=== PATIENT | male | born 1950 | race Caucasian/White ===

== ENCOUNTER 2016-12-14 17:31 | Emergency (ER) | payer MEDICARE, OTHER ==
[~2016-12-14] VITALS: Ht 170.2 cm; Wt 77.0 kg
[~2016-12-14 17:31] MED LIST: TRAM50TA4 PO
[2016-12-14] MEDS ORDERED: LEVE500T53 PO (17:47)
[2016-12-14] MEDS ORDERED: METO25XL PO (17:47)
[2016-12-14] MEDS ORDERED: DOCU240C25 PO (17:47)
[2016-12-14] MEDS ORDERED: CEPH500 PO (17:47)
[2016-12-14] MEDS ORDERED: OXYM15SP NASAL (17:47)
[2016-12-14] MEDS ORDERED: AMLO-511 PO (17:47)
[2016-12-14] MEDS ORDERED: BACITRACIN 0.9 GM PACKET OINTMENT TP ONE (20:30)
[2016-12-14 20:54] VITALS: BP 119/73
== END 2016-12-14 20:56 | disposition home or self-care (01) ==
LOC: EMS 17:32
DX: Z48.02 Encounter for removal of sutures (principal); I10 Essential (primary) hypertension
CPT/HCPCS: 99283

== ENCOUNTER 2016-12-29 21:08 | Emergency (ER) | payer MEDICARE, MEDICAID, OTHER ==
[~2016-12-29] VITALS: Ht 172.7 cm; Wt 77.3 kg
[~2016-12-29 21:08] MED LIST changes: +AMLO-511 PO; +CEPH500 PO; +DOCU240C25 PO; +LEVE500T53 PO; +METO25XL PO; +OXYM15SP NASAL; -TRAM50TA4 PO
[2016-12-29 22:22] LABS: BASOPHILS % (AUTO) 0.4 % (0.0-2.0); EOSINOPHILS % (AUTO) 4.3 % (1.0-6.0); HEMATOCRIT 31.7 % (41-53); HEMOGLOBIN 10.8 g/dL (13.5-17.5); LYMPHOCYTES # (AUTO) 0.9 K/uL (1.0-4.8); LYMPHOCYTES % (AUTO) 24.7 % (22.0-44.0); MEAN CORPUSCULAR HEMOGLOBIN 31.7 pg (26.0-34.0); MEAN CORPUSCULAR VOLUME 93 fL (80-100); MONOCYTES # (AUTO) 0.3 K/uL (0.1-1.0); MONOCYTES % (AUTO) 9.5 % (2.0-9.0); NEUTROPHILS # (AUTO) 2.2 K/uL (1.8-7.7); NEUTROPHILS % (AUTO) 61.1 % (40.0-70.0); PLATELET COUNT (AUTO) 185 K/uL (150-450); RED CELL DISTRIBUTION WIDTH 14.7 % (11.5-14.5)
[2016-12-29] MEDS ORDERED: BACITRACIN 0.9 GM PACKET OINTMENT TP ONE (22:30)
[2016-12-29 22:40] LABS: ANION GAP 7 mmol/L (8-16); CALCIUM, TOTAL 8.6 mg/dL (8.8-10.5); CARBON DIOXIDE 28 mmol/L (22-29); CHLORIDE 104 mmol/L (98-107); CREATININE 0.72 mg/dL (0.60-1.30); GLOMERULAR FILTR. RATE CALC > 60 mL/min (>60); GLUCOSE,RANDOM 108 mg/dL (70-110); POTASSIUM 4.1 mmol/L (3.5-5.1); SODIUM SERUM 139 mmol/L (136-145); UREA NITROGEN, BLOOD 18 mg/dL (7-18)
[2016-12-29 22:46] LABS: ALANINE AMINOTRANSFERASE 115 U/L (12-78); ALBUMIN 3.3 g/dL (3.4-5.0); ALKALINE PHOSPHATASE 83 U/L (46-116); ASPARTATE AMINOTRANSFERASE 124 U/L (15-37); BILIRUBIN,TOTAL 0.6 mg/dL (0.1-1.0); TOTAL PROTEIN, SERUM 7.5 g/dL (6.4-8.2)
[2016-12-29] MEDS ORDERED: HYDROCODONE/ACETAMINOPHEN 5-325 MG TABLET PO ONE (23:30)
[2016-12-29] MEDS ORDERED: KETOROLAC TROMETHAMINE 60 MG/2 ML VIAL IM ONE (23:30)
[2016-12-30 01:11] VITALS: BP 166/87
== END 2016-12-30 01:13 | disposition home or self-care (01) ==
LOC: EMS 21:09
DX: S02.2XXA Fracture of nasal bones, initial encounter for closed fracture (principal); S60.222A Contusion of left hand, initial encounter; I10 Essential (primary) hypertension; Z98.890 Other specified postprocedural states; W01.0XXA Fall on same level from slipping, tripping and stumbling without subsequent striking against object, initial encounter; Y93.89 Activity, other specified; Y92.89 Other specified places as the place of occurrence of the external cause; Y99.8 Other external cause status
CPT/HCPCS: 29125; 29280; 36415; 70450; 70486; 73130; 80053; 84484; 85025; 96372; 99285; G0480; J1885

== ENCOUNTER 2017-01-08 21:25 | Emergency (ER) | payer MEDICARE, MEDICAID, OTHER ==
[~2017-01-08] VITALS: Ht 175.3 cm; Wt 66.8 kg
[~2017-01-08 21:25] MED LIST changes: -CEPH500 PO; -DOCU240C25 PO
[2017-01-08] MEDS ORDERED: IBUPROFEN 800 MG TABLET PO ONE (22:00)
[2017-01-08 22:12] VITALS: BP 139/81
== END 2017-01-08 22:42 | disposition home or self-care (01) ==
LOC: EMS 21:26
DX: S02.2XXG Fracture of nasal bones, subsequent encounter for fracture with delayed healing (principal); I10 Essential (primary) hypertension; X58.XXXD Exposure to other specified factors, subsequent encounter
CPT/HCPCS: 99282

== ENCOUNTER 2017-02-01 01:15 | Emergency (ER) | payer MEDICARE, MEDICAID ==
[~2017-02-01] VITALS: Ht 175.3 cm; Wt 77.3 kg
[2017-02-01] MEDS ORDERED: LIDOCAINE HCL 1%/EPI 1:200,000/PF 10 ML VIAL INJ ONE (02:00)
[2017-02-01] MEDS ORDERED: LIDOCAINE HCL/PF 1% 2 ML VIAL IM ONE (02:45)
[2017-02-01] MEDS ORDERED: CefTRIAXone SODIUM 1 GM/VIAL IM ONE (02:45)
[2017-02-01 03:13] VITALS: BP 145/77
== END 2017-02-01 03:14 | disposition home or self-care (01) ==
LOC: EMS 01:17
DX: L03.113 Cellulitis of right upper limb (principal); I10 Essential (primary) hypertension; Z98.890 Other specified postprocedural states
CPT/HCPCS: 10060; 96372; 99283; J0696; J3490 ×2

== ENCOUNTER 2017-02-03 19:03 | Emergency (ER) | payer MEDICARE, MEDICAID ==
[~2017-02-03] VITALS: Ht 172.7 cm; Wt 79.5 kg
[2017-02-03] MEDS ORDERED: BUPIVACAINE HCL/PF 0.25% 10 ML VIAL INJ ONE (19:15)
[2017-02-03 19:53] VITALS: BP 162/80
== END 2017-02-03 20:12 | disposition home or self-care (01) ==
LOC: EMS 19:08
DX: S45.901A Unspecified injury of unspecified blood vessel at shoulder and upper arm level, right arm, initial encounter (principal); L76.22 Postprocedural hemorrhage of skin and subcutaneous tissue following other procedure; I10 Essential (primary) hypertension; F11.90 Opioid use, unspecified, uncomplicated; X58.XXXA Exposure to other specified factors, initial encounter; Y93.89 Activity, other specified; Y92.89 Other specified places as the place of occurrence of the external cause; Y99.8 Other external cause status
CPT/HCPCS: 99284; J3490; 99283

== ENCOUNTER 2017-02-05 18:29 | Emergency (ER) | payer MEDICARE, MEDICAID ==
[~2017-02-05] VITALS: Ht 175.3 cm; Wt 77.3 kg
[2017-02-05 18:58] VITALS: BP 104/76
== END 2017-02-05 19:38 | disposition home or self-care (01) ==
LOC: EMS 18:31
DX: Z48.00 Encounter for change or removal of nonsurgical wound dressing (principal); I10 Essential (primary) hypertension
CPT/HCPCS: 99282

== ENCOUNTER 2017-02-07 11:01 | Emergency (ER) | payer MEDICARE, MEDICAID ==
[~2017-02-07] VITALS: Ht 165.1 cm; Wt 63.0 kg
[2017-02-07 11:48] VITALS: BP 154/78
== END 2017-02-07 12:41 | disposition home or self-care (01) ==
LOC: EMS 11:03
DX: R21 Rash and other nonspecific skin eruption (principal); I10 Essential (primary) hypertension; F11.90 Opioid use, unspecified, uncomplicated
CPT/HCPCS: 99282

== ENCOUNTER 2017-02-13 11:43 | Emergency (ER) | payer MEDICARE, MEDICAID ==
[~2017-02-13] VITALS: Ht 175.3 cm; Wt 66.8 kg
[2017-02-13 14:50] VITALS: BP 147/74
[2017-02-13] MEDS ORDERED: BACITRACIN 0.9 GM PACKET OINTMENT TP ONE (15:30)
== END 2017-02-13 15:45 | disposition home or self-care (01) ==
LOC: EMS 11:46
DX: Z48.00 Encounter for change or removal of nonsurgical wound dressing (principal); L02.413 Cutaneous abscess of right upper limb; I10 Essential (primary) hypertension; F11.90 Opioid use, unspecified, uncomplicated
CPT/HCPCS: 99283

== ENCOUNTER 2017-02-13 17:17 | Emergency (ER) | payer MEDICARE, MEDICAID ==
[~2017-02-13] VITALS: Ht 175.3 cm; Wt 77.3 kg
[2017-02-13 22:42] VITALS: BP 138/81
== END 2017-02-13 23:30 | disposition home or self-care (01) ==
LOC: EMS 17:19
DX: L76.22 Postprocedural hemorrhage of skin and subcutaneous tissue following other procedure (principal); I10 Essential (primary) hypertension; F11.90 Opioid use, unspecified, uncomplicated
CPT/HCPCS: 99283

== ENCOUNTER 2017-02-16 11:30 | Emergency (ER) | payer MEDICARE, MEDICAID ==
[~2017-02-16] VITALS: Ht 175.3 cm; Wt 77.3 kg
[2017-02-16 16:16] VITALS: BP 142/81
== END 2017-02-16 16:19 | disposition home or self-care (01) ==
LOC: EMS 11:33
DX: Z48.00 Encounter for change or removal of nonsurgical wound dressing (principal); I10 Essential (primary) hypertension
CPT/HCPCS: 99282

== ENCOUNTER 2017-02-17 16:53 | Emergency (ER) | payer MEDICARE, MEDICAID ==
[~2017-02-17] VITALS: Ht 175.3 cm; Wt 77.3 kg
[2017-02-17 17:01] VITALS: BP 158/74
== END 2017-02-17 21:39 | disposition home or self-care (01) ==
LOC: EMS 16:55
DX: L03.113 Cellulitis of right upper limb (principal); I10 Essential (primary) hypertension; Z48.00 Encounter for change or removal of nonsurgical wound dressing
CPT/HCPCS: 99283

== ENCOUNTER 2017-02-21 11:03 | Emergency (ER) | payer MEDICARE, MEDICAID ==
[~2017-02-21] VITALS: Ht 175.3 cm; Wt 77.3 kg
[~2017-02-21 11:03] MED LIST changes: -LEVE500T53 PO
[2017-02-21] MEDS ORDERED: LIDOCAINE HCL 1%/EPI 1:200,000/PF 10 ML VIAL INJ ONE (12:15)
[2017-02-21 12:43] VITALS: BP 148/80
== END 2017-02-21 13:35 | disposition home or self-care (01) ==
LOC: EMS 11:06
DX: L76.22 Postprocedural hemorrhage of skin and subcutaneous tissue following other procedure (principal); I10 Essential (primary) hypertension; F11.90 Opioid use, unspecified, uncomplicated
CPT/HCPCS: 96372; 99283; J3490

== ENCOUNTER 2017-02-21 22:07 | Emergency (ER) | payer MEDICARE, MEDICAID ==
[~2017-02-21] VITALS: Ht 175.3 cm; Wt 59.5 kg
[2017-02-21] MEDS ORDERED: NALOXONE HCL 1 MG/ML 2 ML SYG IVP ONE ×2 (22:15→23:45)
[2017-02-21 22:33] LABS: BASOPHILS % (AUTO) 0.5 % (0.0-2.0); EOSINOPHILS % (AUTO) 6.7 % (1.0-6.0); HEMATOCRIT 32.2 % (41-53); HEMOGLOBIN 10.9 g/dL (13.5-17.5); LYMPHOCYTES # (AUTO) 1.6 K/uL (1.0-4.8); LYMPHOCYTES % (AUTO) 30.6 % (22.0-44.0); MEAN CORPUSCULAR HEMOGLOBIN 30.8 pg (26.0-34.0); MEAN CORPUSCULAR HGB CONC 33.8 G/dL (31.0-37.0); MEAN CORPUSCULAR VOLUME 91 fL (80-100); MONOCYTES # (AUTO) 0.4 K/uL (0.1-1.0); MONOCYTES % (AUTO) 7.4 % (2.0-9.0); NEUTROPHILS # (AUTO) 2.9 K/uL (1.8-7.7); NEUTROPHILS % (AUTO) 54.8 % (40.0-70.0); PLATELET COUNT (AUTO) 246 K/uL (150-450); RED BLOOD CELL COUNT(AUTO) 3.53 MIL/uL (4.50-5.90); RED CELL DISTRIBUTION WIDTH 13.8 % (11.5-14.5)
[2017-02-21 22:45] LABS: ANION GAP 5 mmol/L (8-16); CALCIUM, TOTAL 8.1 mg/dL (8.8-10.5); CARBON DIOXIDE 26 mmol/L (22-29); CHLORIDE 108 mmol/L (98-107); CREATININE 0.84 mg/dL (0.60-1.30); GLOMERULAR FILTR. RATE CALC > 60 mL/min (>60); GLUCOSE,RANDOM 104 mg/dL (70-110); POTASSIUM 4.1 mmol/L (3.5-5.1); SODIUM SERUM 139 mmol/L (136-145); UREA NITROGEN, BLOOD 22 mg/dL (7-18)
[2017-02-21 22:53] LABS: ALANINE AMINOTRANSFERASE 125 U/L (12-78); ALKALINE PHOSPHATASE 87 U/L (46-116); ASPARTATE AMINOTRANSFERASE 133 U/L (15-37); BILIRUBIN,TOTAL 0.4 mg/dL (0.1-1.0); TOTAL PROTEIN, SERUM 7.5 g/dL (6.4-8.2)
[2017-02-21 22:54] LABS: ACETAMINOPHEN < 2 mcg/mL (10-30)
[2017-02-22 01:37] VITALS: BP 118/72
== END 2017-02-22 02:46 | disposition home or self-care (01) ==
LOC: EMS 22:09
DX: F11.10 Opioid abuse, uncomplicated (principal); I10 Essential (primary) hypertension; Z98.890 Other specified postprocedural states
CPT/HCPCS: 36415; 80053; 85025; 93005; 96374; 99285; G0480 ×2; G0481; J2310

== ENCOUNTER 2017-07-06 13:50 | Inpatient (IN) | payer OTHER ==
[~2017-07-06] VITALS: Ht 175.3 cm; Wt 76.0 kg
[2017-07-06] MEDS ORDERED: GABA-531 PO (13:58)
[2017-07-06] MEDS ORDERED: PIPERACILLIN/TAZO 3.375 GM/D5W 50 ML IV ONE (16:45)
[2017-07-06] MEDS ORDERED: VANCOMYCIN HCL 1 GM/D5% WATER 200 ML IV ONE (16:45)
[2017-07-06] MEDS ORDERED: 0.9% SODIUM CHLORIDE 10 ML SYRINGE IVP PRN ×2 (16:45→19:00)
[2017-07-06] MEDS ORDERED: KETOROLAC TROMETHAMINE 30 MG/ML VIAL IVP ONE (17:45)
[2017-07-06 17:49] LABS: BASOPHILS % (AUTO) 0.6 % (0.0-2.0); HEMATOCRIT 32.8 % (41-53); HEMOGLOBIN 11.2 g/dL (13.5-17.5); LYMPHOCYTES # (AUTO) 1.3 K/uL (1.0-4.8); MEAN CORPUSCULAR HEMOGLOBIN 26.7 pg (26.0-34.0); MEAN CORPUSCULAR HGB CONC 34.1 G/dL (31.0-37.0); MEAN CORPUSCULAR VOLUME 78 fL (80-100); MONOCYTES # (AUTO) 0.9 K/uL (0.1-1.0); MONOCYTES % (AUTO) 11.8 % (2.0-9.0); NEUTROPHILS # (AUTO) 5.2 K/uL (1.8-7.7); NEUTROPHILS % (AUTO) 69.6 % (40.0-70.0); PLATELET COUNT (AUTO) 182 K/uL (150-450); RED BLOOD CELL COUNT(AUTO) 4.19 MIL/uL (4.50-5.90); RED CELL DISTRIBUTION WIDTH 17.8 % (11.5-14.5)
[2017-07-06 18:03] LABS: ANION GAP 11 mmol/L (8-16); CALCIUM, TOTAL 8.3 mg/dL (8.8-10.5); CARBON DIOXIDE 22 mmol/L (22-29); CHLORIDE 99 mmol/L (98-107); CREATININE 0.87 mg/dL (0.60-1.30); GLOMERULAR FILTR. RATE CALC > 60 mL/min (>60); GLUCOSE,RANDOM 93 mg/dL (70-110); POTASSIUM 3.8 mmol/L (3.5-5.1); SODIUM SERUM 132 mmol/L (136-145); UREA NITROGEN, BLOOD 17 mg/dL (7-18)
[2017-07-06 18:08] LABS: ALANINE AMINOTRANSFERASE 98 U/L (12-78); ALBUMIN 2.7 g/dL (3.4-5.0); ALKALINE PHOSPHATASE 102 U/L (46-116); ASPARTATE AMINOTRANSFERASE 89 U/L (15-37); BILIRUBIN,TOTAL 1.3 mg/dL (0.1-1.0); TOTAL PROTEIN, SERUM 7.1 g/dL (6.4-8.2)
[2017-07-06 18:11] LABS: LACTIC ACID 1.1 mmol/L (0.4-2.0)
[2017-07-06] MEDS ORDERED: ONDANSETRON HCL 4 MG/2 ML VIAL IVP PRN ×2 (19:00→21:30)
[2017-07-06] MEDS ORDERED: ACETAMINOPHEN 325 MG TABLET PO PRN ×2 (19:00→21:30)
[2017-07-06] MEDS ORDERED: KETOROLAC TROMETHAMINE 60 MG/2 ML VIAL IM ONE (19:45)
[2017-07-06] MEDS ORDERED: HYDROCODONE/ACETAMINOPHEN 10-325 MG TABLET PO ONE (19:45)
[2017-07-06] MEDS ORDERED: SULFAMETHOX/TRIMETH DS 800-160 MG/TABLET PO ONE (19:45)
[2017-07-06] MEDS ORDERED: CefTRIAXone SODIUM 1 GM/VIAL IM ONE (19:45)
[2017-07-06] MEDS ORDERED: LIDOCAINE HCL/PF 1% 2 ML VIAL IM ONE (19:45)
[2017-07-06 20:27] VITALS: BP 145/63
[2017-07-06] MEDS ORDERED: MAGNESIUM HYDROXIDE SUSPENSION 30 ML UDCUP PO PRN (21:30)
[2017-07-06] MEDS ORDERED: OxyCODONE HCL/ACETAMINOPHEN 5-325 MG TABLET PO PRN (21:30)
[2017-07-06] MEDS ORDERED: MAGNESIUM SULFATE 2 GM in DEXTROSE 5%-WATER 50 ML IV PRN (21:45)
[2017-07-06] MEDS ORDERED: MAGNESIUM OXIDE 400 MG TABLET PO PRN (21:45)
[2017-07-06] MEDS ORDERED: POTASSIUM CHL 10 MEQ/WATER 50 ML IV PRN (21:45)
[2017-07-06] MEDS ORDERED: DEXTROSE 5%-0.45% SODIUM CHL 1,000 ML IV ONE (21:45)
[2017-07-06] MEDS ORDERED: MAGNESIUM SULFATE 4 GM/WATER 100 ML IV PRN (21:45)
[2017-07-06] MEDS ORDERED: POTASSIUM CHLORIDE 20 MEQ ER TABLET PO PRN (21:45)
[2017-07-06 22:04] LABS: ALBUMIN 2.3 g/dL (3.4-5.0); MAGNESIUM 1.2 mg/dL (1.80-2.40)
[2017-07-06 23:40] VITALS: BP 99/51
[2017-07-07] MEDS ORDERED: VANCOMYCIN HCL 1.5 GM in DEXTROSE 5%-WATER 250 ML IV ONE ×2 (00:30→06:00)
[2017-07-07 03:55] VITALS: BP 116/58
[2017-07-07] MEDS: MORPHINE SULFATE 4 MG/ML SYRINGE IVP PRN ×5 (05:20→22:09)
[2017-07-07 06:41] LABS: ALBUMIN 2.1 g/dL (3.4-5.0); CALCIUM, TOTAL 7.8 mg/dL (8.8-10.5); CREATININE 1.2 mg/dL (0.60-1.30); MAGNESIUM 2.3 mg/dL (1.80-2.40); POTASSIUM 3.4 mmol/L (3.5-5.1); TOTAL PROTEIN, SERUM 5.8 g/dL (6.4-8.2)
[2017-07-07 07:35] LABS: BASOPHILS % (AUTO) 0.3 % (0.0-2.0); EOSINOPHILS % (AUTO) 1.5 % (1.0-6.0); HEMOGLOBIN 10.4 g/dL (13.5-17.5); LYMPHOCYTES # (AUTO) 0.3 K/uL (1.0-4.8); LYMPHOCYTES % (AUTO) 3.5 % (22.0-44.0); MEAN CORPUSCULAR HEMOGLOBIN 26.7 pg (26.0-34.0); MEAN CORPUSCULAR HGB CONC 34.5 G/dL (31.0-37.0); MEAN CORPUSCULAR VOLUME 77 fL (80-100); MONOCYTES # (AUTO) 0.3 K/uL (0.1-1.0); MONOCYTES % (AUTO) 3.7 % (2.0-9.0); NEUTROPHILS # (AUTO) 7.2 K/uL (1.8-7.7); PLATELET COUNT (AUTO) 166 K/uL (150-450); RED BLOOD CELL COUNT(AUTO) 3.88 MIL/uL (4.50-5.90); RED CELL DISTRIBUTION WIDTH 17.2 % (11.5-14.5)
[2017-07-07] MEDS ORDERED: VANCOMYCIN HCL 1.25 GM in DEXTROSE 5%-WATER 250 ML IV SCH (08:00)
[2017-07-07 08:05] VITALS: BP 122/65
[2017-07-07] MEDS ORDERED: RINGERS SOLUTION,LACTATED 1,000 ML IV ONE (08:29)
[2017-07-07] MEDS: DOCUSATE SODIUM 100 MG CAPSULE PO SCH ×3 (08:37→20:04)
[2017-07-07] MEDS ORDERED: POVIDONE-IODINE 10% 15 ML SOLUTION UD ONE (09:26)
[2017-07-07] MEDS ORDERED: FentaNYL CITRATE-PF 100 MCG/2 ML VIAL IVP PRN (09:30)
[2017-07-07] MEDS ORDERED: MEPERIDINE-PF 25 MG/ML SYRINGE IVP PRN (09:30)
[2017-07-07] MEDS ORDERED: ACETAMINOPHEN 1000 MG/ISO-OSM 100 ML IV ONE ×2 (09:45→09:50)
[2017-07-07] MEDS: HYDROmorphone 2 MG/ML SYRINGE IVP PRN ×2 (09:53→10:03)
[2017-07-07] MEDS ORDERED: HYDROmorphone 2 MG/ML SYRINGE ONE (09:53)
[2017-07-07] MEDS ORDERED: HYDROmorphone 2 MG/ML SYRINGE IVP PRN (10:00)
[2017-07-07] MEDS: PANTOPRAZOLE SODIUM 40 MG DR TABLET PO SCH (10:16)
[2017-07-07 10:30] VITALS: BP 121/63
[2017-07-07] MEDS ORDERED: DEXAMETHASONE SOD PHOS 4 MG/ML VIAL IVP ONE (12:00)
[2017-07-07] MEDS ORDERED: ONDANSETRON HCL 4 MG/2 ML VIAL IVP ONE (12:00)
[2017-07-07] MEDS ORDERED: PROPOFOL 1% 20 ML VIAL IVP ONE (12:00)
[2017-07-07] MEDS ORDERED: MIDAZOLAM HCL 2 MG/2 ML VIAL IVP ONE (12:00)
[2017-07-07] MEDS ORDERED: ROCURONIUM BROMIDE 10 MG/ML 5 ML VIAL IVP ONE (12:00)
[2017-07-07] MEDS ORDERED: METOCLOPRAMIDE HCL 5 MG/ML 2 ML VIAL IVP ONE (12:00)
[2017-07-07] MEDS ORDERED: GLYCOPYRROLATE 0.2 MG/ML VIAL IM ONE (12:00)
[2017-07-07] MEDS ORDERED: LIDOCAINE HCL/PF 2% 5 ML VIAL INJ ONE (12:00)
[2017-07-07] MEDS ORDERED: FentaNYL CITRATE-PF 100 MCG/2 ML VIAL IVP ONE (12:00)
[2017-07-07 15:45] VITALS: BP 112/60
[2017-07-07 20:00] VITALS: BP 122/56
[2017-07-07] MEDS ORDERED: OXYGEN THERAPY IH SCH (20:00)
[2017-07-07] MEDS: VANCOMYCIN HCL 1.25 GM in DEXTROSE 5%-WATER 250 ML IV SCH (20:03)
[2017-07-07 23:43] VITALS: BP 131/67
[2017-07-08] MEDS: MORPHINE SULFATE 4 MG/ML SYRINGE IVP PRN ×2 (03:47→08:01)
[2017-07-08 04:00] VITALS: BP 147/69
[2017-07-08] MEDS ORDERED: SODIUM CL IRRIG SOLN BOTTLE 250 ML IRRIG ONE (04:51)
[2017-07-08 07:15] VITALS: BP 161/68
[2017-07-08 07:16] LABS: ANION GAP 9 mmol/L (8-16); CALCIUM, TOTAL 8.4 mg/dL (8.8-10.5); CARBON DIOXIDE 22 mmol/L (22-29); CHLORIDE 103 mmol/L (98-107); CREATININE 0.99 mg/dL (0.60-1.30); GLOMERULAR FILTR. RATE CALC > 60 mL/min (>60); GLUCOSE,RANDOM 139 mg/dL (70-110); POTASSIUM 4.1 mmol/L (3.5-5.1); SODIUM SERUM 134 mmol/L (136-145); UREA NITROGEN, BLOOD 21 mg/dL (7-18)
[2017-07-08] MEDS: PANTOPRAZOLE SODIUM 40 MG DR TABLET PO SCH (08:00)
[2017-07-08] MEDS: VANCOMYCIN HCL 1.25 GM in DEXTROSE 5%-WATER 250 ML IV SCH ×2 (08:00→20:00)
[2017-07-08] MEDS: DOCUSATE SODIUM 100 MG CAPSULE PO SCH ×2 (08:00→20:12)
[2017-07-08 11:11] LABS: HIV 1-2 SCREEN 4TH GEN W/RFLX Non Reactive (Non Reactive)
[2017-07-08] MEDS ORDERED: HYDROCODONE/ACETAMINOPHEN 10-325 MG TABLET PO ONE (11:15)
[2017-07-08 11:16] VITALS: BP 158/80
[2017-07-08] MEDS ORDERED: OxyCODONE HCL/ACETAMINOPHEN 10-325 MG TABLET PO PRN (13:15)
[2017-07-08 15:00] VITALS: BP 155/76
[2017-07-08 19:59] VITALS: BP 169/80
[2017-07-08] MEDS: OxyCODONE HCL 10 MG ER TABLET PO SCH (20:12)
[2017-07-09 05:47] VITALS: BP 138/57
[2017-07-09 07:50] LABS: ANION GAP 6 mmol/L (8-16); CALCIUM, TOTAL 8.2 mg/dL (8.8-10.5); CARBON DIOXIDE 24 mmol/L (22-29); CHLORIDE 103 mmol/L (98-107); CREATININE 0.98 mg/dL (0.60-1.30); GLOMERULAR FILTR. RATE CALC > 60 mL/min (>60); GLUCOSE,RANDOM 84 mg/dL (70-110); POTASSIUM 4.2 mmol/L (3.5-5.1); SODIUM SERUM 133 mmol/L (136-145); UREA NITROGEN, BLOOD 22 mg/dL (7-18)
[2017-07-09] MEDS: DOCUSATE SODIUM 100 MG CAPSULE PO SCH ×2 (09:00→09:07)
[2017-07-09] MEDS: OxyCODONE HCL 10 MG ER TABLET PO SCH (09:07)
[2017-07-09] MEDS: PANTOPRAZOLE SODIUM 40 MG DR TABLET PO SCH (09:07)
[2017-07-09] MEDS: VANCOMYCIN HCL 1.25 GM in DEXTROSE 5%-WATER 250 ML IV SCH (10:24)
[2017-07-09] MEDS ORDERED: AmLODIPine BESYLATE 5 MG TABLET PO SCH (10:30)
[2017-07-09 12:17] VITALS: BP 147/69
== END 2017-07-09 16:30 | disposition still patient (30) | DRG 580 ==
LOC: EMS 13:50 → 6N 19:06
PROVIDERS: ADMIT Internal Medicine; ATTEND Internal Medicine
PROC: 0J9L0ZZ Drainage of Right Upper Leg Subcutaneous Tissue and Fascia, Open Approach (ICD-10-PCS; principal; 2017-07-07 09:00)
DX: L02.415 Cutaneous abscess of right lower limb (principal); L03.317 Cellulitis of buttock; F11.90 Opioid use, unspecified, uncomplicated; I10 Essential (primary) hypertension; Z72.89 Other problems related to lifestyle; Z79.899 Other long term (current) drug therapy; Z82.5 Family history of asthma and other chronic lower respiratory diseases
CPT/HCPCS: 83605; 83735; 84132; 86803; 87040; 87070; 87081; 87101; 87205; 87340; 87389; 99285; J0131; J0696; J1100; J1170; J1885; J2250; J2270; J2405; J2543; J2704; J2765; J3010; J3370; J3475; J3490; J7060; J7120

== ENCOUNTER 2017-08-10 13:03 | Emergency (ER) | payer OTHER ==
[~2017-08-10] VITALS: Ht 175.3 cm; Wt 86.0 kg
[~2017-08-10 13:03] MED LIST changes: +GABA-531 PO
[2017-08-10 13:24] LABS: GLUCOSE,POINT OF CARE 105 MG/DL (70-110)
[2017-08-10] MEDS ORDERED: SODIUM CHLORIDE 0.9% 1,000 ML IV ONE (14:45)
[2017-08-10 15:01] LABS: BASOPHILS % (AUTO) 0.7 % (0.0-2.0); EOSINOPHILS % (AUTO) 7.4 % (1.0-6.0); HEMATOCRIT 30.5 % (41-53); HEMOGLOBIN 10.4 g/dL (13.5-17.5); LYMPHOCYTES % (AUTO) 33.3 % (22.0-44.0); MEAN CORPUSCULAR HEMOGLOBIN 26.9 pg (26.0-34.0); MEAN CORPUSCULAR VOLUME 79 fL (80-100); MONOCYTES # (AUTO) 0.3 K/uL (0.1-1.0); MONOCYTES % (AUTO) 9.3 % (2.0-9.0); NEUTROPHILS # (AUTO) 1.4 K/uL (1.8-7.7); NEUTROPHILS % (AUTO) 49.3 % (40.0-70.0); PLATELET COUNT (AUTO) 159 K/uL (150-450); RED BLOOD CELL COUNT(AUTO) 3.86 MIL/uL (4.50-5.90); RED CELL DISTRIBUTION WIDTH 18.5 % (11.5-14.5)
[2017-08-10 15:21] LABS: INR 1.1 (0.9-1.1); PROTHROMBIN TIME 11.5 SEC (9.4-11.6)
[2017-08-10 15:31] LABS: B-TYPE NATRIURETIC PEPTIDE 197 pg/mL (0-100)
[2017-08-10 15:32] LABS: ANION GAP 7 mmol/L (8-16); CALCIUM, TOTAL 7.7 mg/dL (8.8-10.5); CARBON DIOXIDE 25 mmol/L (22-29); CHLORIDE 107 mmol/L (98-107); CREATININE 0.85 mg/dL (0.60-1.30); GLOMERULAR FILTR. RATE CALC > 60 mL/min (>60); GLUCOSE,RANDOM 122 mg/dL (70-110); POTASSIUM 3.6 mmol/L (3.5-5.1); SODIUM SERUM 139 mmol/L (136-145); UREA NITROGEN, BLOOD 14 mg/dL (7-18)
[2017-08-10 15:57] LABS: ALANINE AMINOTRANSFERASE 98 U/L (12-78); ALBUMIN 2.8 g/dL (3.4-5.0); ALKALINE PHOSPHATASE 86 U/L (46-116); ASPARTATE AMINOTRANSFERASE 129 U/L (15-37); BILIRUBIN,TOTAL 0.5 mg/dL (0.1-1.0); CKMB RELATIVE INDEX 3.4 % (0.0-4.0); CREATINE KINASE MB 10.4 ng/mL (0-5); CREATINE KINASE, TOTAL 306 U/L (39-308); TOTAL PROTEIN, SERUM 6.7 g/dL (6.4-8.2)
[2017-08-10 16:38] LABS: APPEARANCE,URINE CLEAR (CLEAR); GLUCOSE, URINE (UA) NEGATIVE (NEGATIVE); KETONES,URINE NEGATIVE (NEGATIVE); LEUKOCYTE ESTERASE ,URINE NEGATIVE (NEGATIVE); NITRATE,URINE NEGATIVE (NEGATIVE); OCCULT BLOOD,URINE NEGATIVE (NEGATIVE); PROTEIN,URINE TRACE (NEGATIVE)
[2017-08-10 16:40] LABS: BILIRUBIN,URINE PRELIM. POSITIVE (NEGATIVE)
[2017-08-10 16:44] LABS: AMPHET/METH SCREEN,URINE POSITIVE (NEGATIVE); BARBITURATE SCREEN, URINE NEGATIVE (NEGATIVE); BENZODIAZEPINES SCREEN,URINE POSITIVE (NEGATIVE); CANNABINOID SCREEN,URINE NEGATIVE (NEGATIVE); COCAINE SCREEN,URINE NEGATIVE (NEGATIVE); METHADONE SCREEN, URINE NEGATIVE (NEGATIVE); OPIATE SCREEN,URINE POSITIVE (NEGATIVE); PHENCYCLIDINE SCREEN,URINE NEGATIVE (NEGATIVE)
[2017-08-10 17:02] LABS: RBC,URINE 0-2 /HPF (0-2); WBC,URINE 0-2 /HPF (0-5)
[2017-08-10 17:03] LABS: BACTERIA,URINE None Seen /HPF (None Seen); SQUAMOUS EPITHELIAL CELL,UR None Seen /LPF (None Seen)
[2017-08-10 19:53] VITALS: BP 145/83
== END 2017-08-10 20:16 | disposition home or self-care (01) ==
LOC: EMS 13:05
DX: F11.20 Opioid dependence, uncomplicated (principal); I10 Essential (primary) hypertension; R79.1 Abnormal coagulation profile; Z79.899 Other long term (current) drug therapy
CPT/HCPCS: 93005; 99285

== ENCOUNTER 2017-10-20 20:13 | Emergency (ER) | payer OTHER ==
[~2017-10-20] VITALS: Ht 175.3 cm; Wt 75.9 kg
[~2017-10-20 20:13] MED LIST changes: -METO25XL PO; -OXYM15SP NASAL
[2017-10-20] MEDS ORDERED: SODIUM PHOS/SODIUM BIPHOS 133 ML ENEMA PR ONE (21:15)
[2017-10-20] MEDS ORDERED: MAGNESIUM CITRATE 300 ML ORAL SOLUTION PO ONE (21:15)
[2017-10-20 21:40] LABS: BASOPHILS % (AUTO) 0.6 % (0.0-2.0); EOSINOPHILS % (AUTO) 3.5 % (1.0-6.0); HEMOGLOBIN 10.8 g/dL (13.5-17.5); LYMPHOCYTES # (AUTO) 0.8 K/uL (1.0-4.8); LYMPHOCYTES % (AUTO) 14.7 % (22.0-44.0); MEAN CORPUSCULAR HEMOGLOBIN 27.7 pg (26.0-34.0); MEAN CORPUSCULAR HGB CONC 33.7 G/dL (31.0-37.0); MEAN CORPUSCULAR VOLUME 82 fL (80-100); MONOCYTES # (AUTO) 0.4 K/uL (0.1-1.0); MONOCYTES % (AUTO) 7.7 % (2.0-9.0); NEUTROPHILS # (AUTO) 4.2 K/uL (1.8-7.7); NEUTROPHILS % (AUTO) 73.5 % (40.0-70.0); PLATELET COUNT (AUTO) 169 K/uL (150-450); RED BLOOD CELL COUNT(AUTO) 3.89 MIL/uL (4.50-5.90); RED CELL DISTRIBUTION WIDTH 16.4 % (11.5-14.5)
[2017-10-20 21:40] LABS: APPEARANCE,URINE CLEAR (CLEAR); BILIRUBIN,URINE NEGATIVE (NEGATIVE); GLUCOSE, URINE (UA) NEGATIVE (NEGATIVE); KETONES,URINE NEGATIVE (NEGATIVE); LEUKOCYTE ESTERASE ,URINE NEGATIVE (NEGATIVE); NITRATE,URINE NEGATIVE (NEGATIVE); OCCULT BLOOD,URINE NEGATIVE (NEGATIVE); PROTEIN,URINE NEGATIVE (NEGATIVE)
[2017-10-20 21:51] LABS: ANION GAP 12 mmol/L (8-16); CALCIUM, TOTAL 8.6 mg/dL (8.8-10.5); CARBON DIOXIDE 23 mmol/L (22-29); CHLORIDE 105 mmol/L (98-107); CREATININE 0.92 mg/dL (0.60-1.30); GLOMERULAR FILTR. RATE CALC > 60 mL/min (>60); GLUCOSE,RANDOM 99 mg/dL (70-110); POTASSIUM 3.7 mmol/L (3.5-5.1); SODIUM SERUM 140 mmol/L (136-145); UREA NITROGEN, BLOOD 16 mg/dL (7-18)
[2017-10-20 21:57] LABS: ALANINE AMINOTRANSFERASE 89 U/L (12-78); ALBUMIN 3.1 g/dL (3.4-5.0); ALKALINE PHOSPHATASE 93 U/L (46-116); ASPARTATE AMINOTRANSFERASE 111 U/L (15-37); BILIRUBIN,TOTAL 0.7 mg/dL (0.1-1.0)
[2017-10-20] MEDS ORDERED: BISACODYL 10 MG RECTAL RECTAL SUPPOSITORY PR ONE (22:45)
[2017-10-20 23:13] VITALS: BP 138/97
== END 2017-10-20 23:21 | disposition home or self-care (01) ==
LOC: EMS 20:13
DX: K59.00 Constipation, unspecified (principal); I10 Essential (primary) hypertension; F11.10 Opioid abuse, uncomplicated
CPT/HCPCS: 74018; 99285

== ENCOUNTER 2018-01-04 05:11 | Emergency (ER) | payer OTHER ==
[~2018-01-04] VITALS: Ht 175.3 cm; Wt 73.0 kg
[2018-01-04] MEDS ORDERED: ACETAMINOPHEN 325 MG TABLET PO ONE (06:15)
[2018-01-04] MEDS ORDERED: IBUPROFEN 400 MG TABLET PO ONE (06:15)
[2018-01-04 06:49] VITALS: BP 145/70
[2018-01-04] MEDS ORDERED: LIDOCAINE 5% TRANSDERMAL PATCH TD ONE (07:00)
== END 2018-01-04 07:30 | disposition home or self-care (01) ==
LOC: EMS 05:11
DX: M25.562 Pain in left knee (principal); I10 Essential (primary) hypertension; F11.90 Opioid use, unspecified, uncomplicated; Z79.899 Other long term (current) drug therapy

== ENCOUNTER 2018-03-05 09:41 | Emergency (ER) | payer OTHER ==
[~2018-03-05] VITALS: Ht 175.3 cm; Wt 77.3 kg
[2018-03-05] MEDS ORDERED: KETOROLAC TROMETHAMINE 60 MG/2 ML VIAL IM ONE (10:45)
[2018-03-05 11:15] VITALS: BP 93/52
== END 2018-03-05 11:20 | disposition home or self-care (01) ==
LOC: EMS 09:42
DX: M25.562 Pain in left knee (principal); M79.89 Other specified soft tissue disorders; M19.90 Unspecified osteoarthritis, unspecified site; I10 Essential (primary) hypertension
CPT/HCPCS: 96372; 99283; J1885

== ENCOUNTER 2018-03-14 20:01 | Emergency (ER) | payer MEDICARE, OTHER ==
[~2018-03-14] VITALS: Ht 172.7 cm; Wt 75.0 kg
[2018-03-14 20:26] VITALS: BP 149/79
[2018-03-14] MEDS ORDERED: KETOROLAC TROMETHAMINE 60 MG/2 ML VIAL IM ONE (21:00)
== END 2018-03-14 21:28 | disposition home or self-care (01) ==
LOC: EMS 20:02
DX: G89.29 Other chronic pain (principal); M13.811 Other specified arthritis, right shoulder; M13.862 Other specified arthritis, left knee; M13.861 Other specified arthritis, right knee; I10 Essential (primary) hypertension
CPT/HCPCS: 96372; 99283; J1885

== ENCOUNTER 2018-05-08 14:18 | Emergency (ER) | payer MEDICARE, OTHER ==
[~2018-05-08] VITALS: Ht 172.7 cm; Wt 72.7 kg
[2018-05-08 15:11] VITALS: BP 142/68
[2018-05-08] MEDS ORDERED: HYDROCODONE/ACETAMINOPHEN 5-325 MG TABLET PO ONE (16:45)
[2018-05-08] MEDS ORDERED: LIDOCAINE 1%/EPI 1:200,000/PF 10 ML VIAL INJ ONE (16:45)
== END 2018-05-08 18:44 | disposition home or self-care (01) ==
LOC: EMS 14:19
DX: S01.81XA Laceration without foreign body of other part of head, initial encounter (principal); S80.02XA Contusion of left knee, initial encounter; M19.90 Unspecified osteoarthritis, unspecified site; I10 Essential (primary) hypertension; W01.0XXA Fall on same level from slipping, tripping and stumbling without subsequent striking against object, initial encounter; Y93.01 Activity, walking, marching and hiking; Y92.89 Other specified places as the place of occurrence of the external cause; Y99.8 Other external cause status
CPT/HCPCS: 12013; 29505; 73562; 99283; J3490; 12002

== ENCOUNTER 2018-06-04 19:57 | Emergency (ER) | payer MEDICARE, MEDICAID ==
[~2018-06-04] VITALS: Ht 175.3 cm; Wt 75.0 kg
[2018-06-04] MEDS ORDERED: KETOROLAC TROMETHAMINE 30 MG/ML VIAL IM ONE (21:00)
[2018-06-04 21:59] VITALS: BP 143/71
== END 2018-06-04 22:47 | disposition home or self-care (01) ==
LOC: EMS 19:58
DX: M25.512 Pain in left shoulder (principal); M25.511 Pain in right shoulder; I10 Essential (primary) hypertension; F19.10 Other psychoactive substance abuse, uncomplicated; M19.90 Unspecified osteoarthritis, unspecified site; Z88.8 Allergy status to other drugs, medicaments and biological substances
CPT/HCPCS: 73030; 96372; 99283; J1885

== ENCOUNTER 2018-07-01 01:16 | Emergency (ER) | payer MEDICARE, MEDICAID ==
[~2018-07-01] VITALS: Ht 175.3 cm; Wt 75.0 kg
[2018-07-01 04:00] VITALS: BP 119/85
[2018-07-01] MEDS ORDERED: IBUPROFEN 600 MG TABLET PO ONE (04:00)
== END 2018-07-01 04:36 | disposition home or self-care (01) ==
LOC: EMS 01:16
DX: G89.29 Other chronic pain (principal); M25.511 Pain in right shoulder; F11.10 Opioid abuse, uncomplicated; I10 Essential (primary) hypertension; Z79.899 Other long term (current) drug therapy

== ENCOUNTER 2018-08-30 14:03 | Inpatient (IN) | payer BC, OTHER ==
[~2018-08-30] VITALS: Ht 175.3 cm; Wt 66.7 kg
[~2018-08-30 14:03] MED LIST changes: -AMLO-511 PO; +AMLO5TAB9 PO
[2018-08-30] MEDS ORDERED: TraMADol HCL 50 MG TABLET PO ONE (15:00)
[2018-08-30 16:31] LABS: BASOPHILS % (AUTO) 0.6 % (0.0-2.0); EOSINOPHILS % (AUTO) 3.2 % (1.0-6.0); HEMATOCRIT 28.6 % (41-53); HEMOGLOBIN 9.4 g/dL (13.5-17.5); LYMPHOCYTES # (AUTO) 0.8 K/uL (1.0-4.8); LYMPHOCYTES % (AUTO) 26.4 % (22.0-44.0); MEAN CORPUSCULAR VOLUME 76 fL (80-100); MONOCYTES # (AUTO) 0.3 K/uL (0.1-1.0); MONOCYTES % (AUTO) 9.8 % (2.0-9.0); NEUTROPHILS # (AUTO) 1.9 K/uL (1.8-7.7); PLATELET COUNT (AUTO) 168 K/uL (150-450); RED BLOOD CELL COUNT(AUTO) 3.78 MIL/uL (4.50-5.90); RED CELL DISTRIBUTION WIDTH 17.8 % (11.5-14.5)
[2018-08-30 16:38] LABS: INR 1.1 (0.9-1.1); PROTHROMBIN TIME 11.2 SEC (9.4-11.6)
[2018-08-30 16:45] LABS: ANION GAP 9 mmol/L (8-16); CALCIUM, TOTAL 8.7 mg/dL (8.8-10.5); CARBON DIOXIDE 22 mmol/L (22-29); CHLORIDE 107 mmol/L (98-107); CREATININE 0.88 mg/dL (0.60-1.30); GLOMERULAR FILTR. RATE CALC > 60 mL/min (>60); GLUCOSE,RANDOM 110 mg/dL (70-110); POTASSIUM 3.8 mmol/L (3.5-5.1); SODIUM SERUM 138 mmol/L (136-145); UREA NITROGEN, BLOOD 36 mg/dL (7-18)
[2018-08-30 16:50] LABS: ALANINE AMINOTRANSFERASE 58 U/L (12-78); ALBUMIN 2.9 g/dL (3.4-5.0); ALKALINE PHOSPHATASE 93 U/L (46-116); ASPARTATE AMINOTRANSFERASE 65 U/L (15-37); BILIRUBIN,TOTAL 0.6 mg/dL (0.1-1.0); TOTAL PROTEIN, SERUM 7.1 g/dL (6.4-8.2)
[2018-08-30] MEDS ORDERED: HYDROCODONE/ACETAMINOPHEN 5-325 MG TABLET PO ONE (21:00)
[2018-08-30] MEDS ORDERED: ACETAMINOPHEN 325 MG TABLET PO PRN (23:45)
[2018-08-30] MEDS ORDERED: ONDANSETRON HCL 4 MG/2 ML VIAL IVP PRN (23:45)
[2018-08-30] MEDS ORDERED: 0.9% SODIUM CHLORIDE 10 ML SYRINGE IVP PRN (23:45)
[2018-08-31] MEDS ORDERED: HYDROmorphone 2 MG/ML SYRINGE IVP PRN (03:15)
[2018-08-31] MEDS ORDERED: ONDANSETRON HCL 4 MG/2 ML VIAL IVP PRN ×2 (03:15→06:15)
[2018-08-31] MEDS ORDERED: 0.9% SODIUM CHLORIDE 10 ML SYRINGE IVP PRN ×2 (03:15→06:15)
[2018-08-31] MEDS ORDERED: ACETAMINOPHEN 325 MG TABLET PO PRN (03:15)
[2018-08-31 05:48] VITALS: BP 152/82
[2018-08-31] MEDS ORDERED: IPRATROPIUM BROMIDE 0.5 MG/2.5 ML NEB SOLUTION NEB PRN (06:15)
[2018-08-31] MEDS ORDERED: ALBUTEROL SULFATE 2.5 MG/0.5 ML NEB SOLUTION NEB PRN (06:15)
[2018-08-31 07:56] VITALS: BP 159/72
[2018-08-31] MEDS: ALBUTEROL SULFATE 2.5 MG/0.5 ML NEB SOLUTION NEB SCH ×3 (08:10→19:49)
[2018-08-31] MEDS: IPRATROPIUM BROMIDE 0.5 MG/2.5 ML NEB SOLUTION NEB SCH ×3 (08:10→19:49)
[2018-08-31] MEDS ORDERED: MAGNESIUM HYDROXIDE SUSPENSION 30 ML UDCUP PO PRN (10:15)
[2018-08-31 11:46] VITALS: BP 136/64
[2018-08-31 15:38] VITALS: BP 147/75
[2018-08-31] MEDS: AmLODIPine BESYLATE 2.5 MG TABLET PO SCH ×2 (17:58→20:29)
[2018-08-31] MEDS: FERROUS SULFATE 325 MG EC TABLET PO SCH (17:59)
[2018-08-31] MEDS: MULTIVITAMINS WITH MINERALS, THERAPEUTIC TABLET PO SCH (17:59)
[2018-08-31 19:50] VITALS: BP 157/77
[2018-08-31] MEDS: HEPARIN SODIUM,PORCINE 5,000 UNITS/ML VIAL SQ SCH (20:29)
[2018-09-01 00:03] VITALS: BP 134/69
[2018-09-01] MEDS: IPRATROPIUM BROMIDE 0.5 MG/2.5 ML NEB SOLUTION NEB SCH ×2 (02:14→07:31)
[2018-09-01] MEDS: ALBUTEROL SULFATE 2.5 MG/0.5 ML NEB SOLUTION NEB SCH ×2 (02:15→07:31)
[2018-09-01 04:15] VITALS: BP 151/76
[2018-09-01 06:46] LABS: BASOPHILS % (AUTO) 0.9 % (0.0-2.0); HEMATOCRIT 32.1 % (41-53); HEMOGLOBIN 10.5 g/dL (13.5-17.5); LYMPHOCYTES % (AUTO) 25.4 % (22.0-44.0); MEAN CORPUSCULAR HEMOGLOBIN 24.4 pg (26.0-34.0); MEAN CORPUSCULAR HGB CONC 32.6 G/dL (31.0-37.0); MEAN CORPUSCULAR VOLUME 75 fL (80-100); MONOCYTES # (AUTO) 0.2 K/uL (0.1-1.0); MONOCYTES % (AUTO) 6.2 % (2.0-9.0); NEUTROPHILS # (AUTO) 2.5 K/uL (1.8-7.7); NEUTROPHILS % (AUTO) 65.5 % (40.0-70.0); PLATELET COUNT (AUTO) 196 K/uL (150-450); RED BLOOD CELL COUNT(AUTO) 4.29 MIL/uL (4.50-5.90); RED CELL DISTRIBUTION WIDTH 18.3 % (11.5-14.5)
[2018-09-01 07:06] LABS: B-TYPE NATRIURETIC PEPTIDE 412 pg/mL (0-100)
[2018-09-01 07:31] LABS: ANION GAP 11 mmol/L (8-16); CALCIUM, TOTAL 8.8 mg/dL (8.8-10.5); CARBON DIOXIDE 23 mmol/L (22-29); CHLORIDE 104 mmol/L (98-107); CREATINE KINASE, TOTAL ONLY 77 U/L (39-308); CREATININE 0.82 mg/dL (0.60-1.30); GLOMERULAR FILTR. RATE CALC > 60 mL/min (>60); GLUCOSE,RANDOM 96 mg/dL (70-110); POTASSIUM 3.8 mmol/L (3.5-5.1); SODIUM SERUM 138 mmol/L (136-145); UREA NITROGEN, BLOOD 23 mg/dL (7-18)
[2018-09-01] MEDS: FERROUS SULFATE 325 MG EC TABLET PO SCH (07:50)
[2018-09-01] MEDS: MULTIVITAMINS WITH MINERALS, THERAPEUTIC TABLET PO SCH (07:50)
[2018-09-01] MEDS: HEPARIN SODIUM,PORCINE 5,000 UNITS/ML VIAL SQ SCH (07:51)
[2018-09-01 08:07] VITALS: BP 154/68
[2018-09-01] MEDS: AmLODIPine BESYLATE 2.5 MG TABLET PO SCH (08:27)
== END 2018-09-01 11:00 | disposition left against medical advice (07) | DRG 183 ==
LOC: EMS 14:03 → 5S 08-31 04:07
PROVIDERS: ADMIT Internal Medicine; ATTEND Internal Medicine
DX: S22.43XA Multiple fractures of ribs, bilateral, initial encounter for closed fracture (principal); E43 Unspecified severe protein-calorie malnutrition; R00.1 Bradycardia, unspecified; D50.9 Iron deficiency anemia, unspecified; D72.819 Decreased white blood cell count, unspecified; Z68.21 Body mass index [BMI] 21.0-21.9, adult; I10 Essential (primary) hypertension; Z53.21 Procedure and treatment not carried out due to patient leaving prior to being seen by health care provider; W01.0XXA Fall on same level from slipping, tripping and stumbling without subsequent striking against object, initial encounter; M19.90 Unspecified osteoarthritis, unspecified site; R29.6 Repeated falls; Y93.89 Activity, other specified; Y92.89 Other specified places as the place of occurrence of the external cause; Y99.8 Other external cause status; Z91.19 Patient's noncompliance with other medical treatment and regimen
CPT/HCPCS: 70450; 71101; 71250; 83735; 87081; 93005; 94640; 99291; G0378; J1644

== ENCOUNTER 2018-09-25 20:59 | Emergency (ER) | payer BC, OTHER ==
[~2018-09-25] VITALS: Ht 170.2 cm; Wt 68.2 kg
[2018-09-25 21:47] LABS: BASOPHILS % (AUTO) 0.5 % (0.0-2.0); EOSINOPHILS % (AUTO) 2.2 % (1.0-6.0); HEMATOCRIT 28.5 % (41-53); HEMOGLOBIN 9.1 g/dL (13.5-17.5); LYMPHOCYTES # (AUTO) 0.8 K/uL (1.0-4.8); LYMPHOCYTES % (AUTO) 19.2 % (22.0-44.0); MEAN CORPUSCULAR HEMOGLOBIN 24.8 pg (26.0-34.0); MEAN CORPUSCULAR VOLUME 78 fL (80-100); MONOCYTES # (AUTO) 0.4 K/uL (0.1-1.0); MONOCYTES % (AUTO) 9.3 % (2.0-9.0); NEUTROPHILS # (AUTO) 2.7 K/uL (1.8-7.7); NEUTROPHILS % (AUTO) 68.8 % (40.0-70.0); PLATELET COUNT (AUTO) 181 K/uL (150-450); RED BLOOD CELL COUNT(AUTO) 3.67 MIL/uL (4.50-5.90); RED CELL DISTRIBUTION WIDTH 18.6 % (11.5-14.5)
[2018-09-25 22:01] LABS: ANION GAP 12 mmol/L (8-16); CARBON DIOXIDE 20 mmol/L (22-29); CHLORIDE 105 mmol/L (98-107); CREATININE 1.04 mg/dL (0.60-1.30); GLOMERULAR FILTR. RATE CALC > 60 mL/min (>60); GLUCOSE,RANDOM 101 mg/dL (70-110); POTASSIUM 4.6 mmol/L (3.5-5.1); SODIUM SERUM 137 mmol/L (136-145); UREA NITROGEN, BLOOD 53 mg/dL (7-18)
[2018-09-25 22:07] LABS: ALANINE AMINOTRANSFERASE 96 U/L (12-78); ALKALINE PHOSPHATASE 128 U/L (46-116); ASPARTATE AMINOTRANSFERASE 167 U/L (15-37); BILIRUBIN,TOTAL 0.9 mg/dL (0.1-1.0); TOTAL PROTEIN, SERUM 6.7 g/dL (6.4-8.2)
[2018-09-25 22:14] LABS: AMPHET/METH SCREEN,URINE NEGATIVE (NEGATIVE); BARBITURATE SCREEN, URINE NEGATIVE (NEGATIVE); BENZODIAZEPINES SCREEN,URINE POSITIVE (NEGATIVE); CANNABINOID SCREEN,URINE NEGATIVE (NEGATIVE); COCAINE SCREEN,URINE NEGATIVE (NEGATIVE); METHADONE SCREEN, URINE NEGATIVE (NEGATIVE); OPIATE SCREEN,URINE POSITIVE (NEGATIVE)
[2018-09-25 22:20] LABS: PHENCYCLIDINE SCREEN,URINE NEGATIVE (NEGATIVE)
[2018-09-25 23:53] VITALS: BP 122/70
[2018-09-26] MEDS ORDERED: KETOROLAC TROMETHAMINE 60 MG/2 ML VIAL IM ONE (00:15)
== END 2018-09-26 01:28 | disposition home or self-care (01) ==
LOC: EMS 21:01
DX: R40.1 Stupor (principal); M25.562 Pain in left knee; M25.561 Pain in right knee; F11.10 Opioid abuse, uncomplicated; M19.90 Unspecified osteoarthritis, unspecified site; I10 Essential (primary) hypertension; Z98.890 Other specified postprocedural states; Z79.899 Other long term (current) drug therapy
CPT/HCPCS: 36415; 80053; 80307; 85025; 93005; 96372; 99285; G0480; J1885; 51701

== ENCOUNTER 2018-10-23 18:06 | Emergency (ER) | payer BC, OTHER ==
[~2018-10-23] VITALS: Ht 175.3 cm; Wt 62.7 kg
[2018-10-23 20:47] VITALS: BP 131/70
== END 2018-10-23 21:30 | disposition home or self-care (01) ==
LOC: EMS 18:09
DX: T40.2X1A Poisoning by other opioids, accidental (unintentional), initial encounter (principal); I10 Essential (primary) hypertension; F11.90 Opioid use, unspecified, uncomplicated; Z79.899 Other long term (current) drug therapy; Y92.89 Other specified places as the place of occurrence of the external cause

== ENCOUNTER 2018-10-24 10:48 | Emergency (ER) | payer BC, OTHER ==
[~2018-10-24] VITALS: Ht 172.7 cm; Wt 66.7 kg
[2018-10-24 12:05] LABS: BASOPHILS % (AUTO) 1.8 % (0.0-2.0); EOSINOPHILS % (AUTO) 6.3 % (1.0-6.0); HEMOGLOBIN 9.4 g/dL (13.5-17.5); LYMPHOCYTES # (AUTO) 1.1 K/uL (1.0-4.8); LYMPHOCYTES % (AUTO) 32.5 % (22.0-44.0); MEAN CORPUSCULAR HEMOGLOBIN 24.8 pg (26.0-34.0); MEAN CORPUSCULAR HGB CONC 31.4 G/dL (31.0-37.0); MEAN CORPUSCULAR VOLUME 79 fL (80-100); MONOCYTES # (AUTO) 0.4 K/uL (0.1-1.0); MONOCYTES % (AUTO) 11.9 % (2.0-9.0); NEUTROPHILS # (AUTO) 1.5 K/uL (1.8-7.7); NEUTROPHILS % (AUTO) 47.5 % (40.0-70.0); PLATELET COUNT (AUTO) 185 K/uL (150-450); RED BLOOD CELL COUNT(AUTO) 3.81 MIL/uL (4.50-5.90); RED CELL DISTRIBUTION WIDTH 17.2 % (11.5-14.5)
[2018-10-24 12:13] LABS: ANION GAP 13 mmol/L (8-16); CALCIUM, TOTAL 8.7 mg/dL (8.8-10.5); CARBON DIOXIDE 24 mmol/L (22-29); CHLORIDE 103 mmol/L (98-107); CREATININE 0.81 mg/dL (0.60-1.30); GLOMERULAR FILTR. RATE CALC > 60 mL/min (>60); GLUCOSE,RANDOM 91 mg/dL (70-110); POTASSIUM 4.2 mmol/L (3.5-5.1); SODIUM SERUM 140 mmol/L (136-145); UREA NITROGEN, BLOOD 20 mg/dL (7-18)
[2018-10-24 12:20] LABS: ALANINE AMINOTRANSFERASE 47 U/L (12-78); ALBUMIN 3.1 g/dL (3.4-5.0); ALKALINE PHOSPHATASE 88 U/L (46-116); ASPARTATE AMINOTRANSFERASE 97 U/L (15-37); BILIRUBIN,TOTAL 0.6 mg/dL (0.1-1.0); TOTAL PROTEIN, SERUM 7.3 g/dL (6.4-8.2)
[2018-10-24] MEDS: VANCOMYCIN HCL 1 GM/D5% WATER 200 ML IV ONE (13:28)
[2018-10-24 14:03] LABS: C-REACTIVE PROTEIN QUANT 0.32 mg/dL (0.00-0.30)
[2018-10-24 14:20] LABS: APPEARANCE,URINE CLEAR (CLEAR); GLUCOSE, URINE (UA) NEGATIVE (NEGATIVE); KETONES,URINE NEGATIVE (NEGATIVE); LEUKOCYTE ESTERASE ,URINE NEGATIVE (NEGATIVE); NITRATE,URINE NEGATIVE (NEGATIVE); OCCULT BLOOD,URINE NEGATIVE (NEGATIVE); PROTEIN,URINE TRACE (NEGATIVE)
[2018-10-24 14:21] LABS: BILIRUBIN,URINE PRELIM. POSITIVE (NEGATIVE)
[2018-10-24 14:26] LABS: AMPHET/METH SCREEN,URINE POSITIVE (NEGATIVE); BARBITURATE SCREEN, URINE NEGATIVE (NEGATIVE); BENZODIAZEPINES SCREEN,URINE NEGATIVE (NEGATIVE); CANNABINOID SCREEN,URINE NEGATIVE (NEGATIVE); COCAINE SCREEN,URINE NEGATIVE (NEGATIVE); METHADONE SCREEN, URINE NEGATIVE (NEGATIVE); OPIATE SCREEN,URINE POSITIVE (NEGATIVE)
[2018-10-24 14:29] LABS: PHENCYCLIDINE SCREEN,URINE NEGATIVE (NEGATIVE)
[2018-10-24 14:30] LABS: BACTERIA,URINE None Seen /HPF (None Seen); RBC,URINE None Seen /HPF (0-2); SQUAMOUS EPITHELIAL CELL,UR Few /LPF (None Seen); WBC,URINE 0-2 /HPF (0-5)
[2018-10-24 19:24] VITALS: BP 132/52
== END 2018-10-24 19:20 | disposition short-term general hospital (02) ==
LOC: EMS 10:51
DX: L03.115 Cellulitis of right lower limb (principal); G89.29 Other chronic pain; F19.10 Other psychoactive substance abuse, uncomplicated; F17.210 Nicotine dependence, cigarettes, uncomplicated; I10 Essential (primary) hypertension
CPT/HCPCS: 36415; 70450; 71045; 73590; 80053; 80307; 81001; 83880; 84484; 85025; 85651; 86140; 87040; 93005; 96365; 96366; 99285; 99406; G0480; J3370

== ENCOUNTER 2018-12-07 17:44 | Emergency (ER) | payer BC, OTHER ==
[~2018-12-07] VITALS: Ht 175.3 cm; Wt 62.3 kg
[2018-12-07] MEDS ORDERED: SODIUM CHLORIDE 0.9% 1,000 ML IV ONE (19:45)
[2018-12-07 19:56] LABS: BASOPHILS % (AUTO) 0.6 % (0.0-2.0); EOSINOPHILS % (AUTO) 0.9 % (1.0-6.0); HEMATOCRIT 36.8 % (41-53); HEMOGLOBIN 11.8 g/dL (13.5-17.5); LYMPHOCYTES # (AUTO) 1.6 K/uL (1.0-4.8); LYMPHOCYTES % (AUTO) 20.7 % (22.0-44.0); MEAN CORPUSCULAR HGB CONC 31.9 G/dL (31.0-37.0); MEAN CORPUSCULAR VOLUME 75 fL (80-100); MONOCYTES # (AUTO) 0.6 K/uL (0.1-1.0); MONOCYTES % (AUTO) 8.2 % (2.0-9.0); NEUTROPHILS # (AUTO) 5.5 K/uL (1.8-7.7); NEUTROPHILS % (AUTO) 69.6 % (40.0-70.0); PLATELET COUNT (AUTO) 232 K/uL (150-450); RED BLOOD CELL COUNT(AUTO) 4.91 MIL/uL (4.50-5.90); RED CELL DISTRIBUTION WIDTH 16.6 % (11.5-14.5)
[2018-12-07 20:05] LABS: ANION GAP 10 mmol/L (8-16); CALCIUM, TOTAL 8.9 mg/dL (8.8-10.5); CARBON DIOXIDE 25 mmol/L (22-29); CHLORIDE 101 mmol/L (98-107); CREATININE 0.92 mg/dL (0.60-1.30); GLUCOSE,RANDOM 97 mg/dL (70-110); POTASSIUM 3.6 mmol/L (3.5-5.1); SODIUM SERUM 136 mmol/L (136-145)
[2018-12-07 20:11] LABS: ALANINE AMINOTRANSFERASE 69 U/L (12-78); ALBUMIN 3.6 g/dL (3.4-5.0); ALKALINE PHOSPHATASE 104 U/L (46-116); ASPARTATE AMINOTRANSFERASE 72 U/L (15-37); BILIRUBIN,TOTAL 0.5 mg/dL (0.1-1.0); TOTAL PROTEIN, SERUM 8.2 g/dL (6.4-8.2)
[2018-12-07 20:12] LABS: GLOMERULAR FILTR. RATE CALC > 60 mL/min (>60)
[2018-12-07 20:20] LABS: UREA NITROGEN, BLOOD 21 mg/dL (7-18)
[2018-12-08 00:14] VITALS: BP 122/80
== END 2018-12-08 01:34 | disposition short-term general hospital (02) ==
LOC: EMS 17:47
DX: T40.601A Poisoning by unspecified narcotics, accidental (unintentional), initial encounter (principal); E86.0 Dehydration; R62.7 Adult failure to thrive; I10 Essential (primary) hypertension; F11.90 Opioid use, unspecified, uncomplicated; F17.210 Nicotine dependence, cigarettes, uncomplicated; Z68.20 Body mass index [BMI] 20.0-20.9, adult; Z79.899 Other long term (current) drug therapy; Y92.89 Other specified places as the place of occurrence of the external cause
CPT/HCPCS: 36415; 70450; 80053; 85025; 96360; 99285; J7030

== ENCOUNTER 2019-03-15 21:56 | Emergency (ER) | payer BC, OTHER ==
[~2019-03-15] VITALS: Ht 175.3 cm; Wt 75.0 kg
[2019-03-16 00:06] LABS: BASOPHILS % (AUTO) 0.7 % (0.0-2.0); EOSINOPHILS % (AUTO) 2.7 % (1.0-6.0); HEMATOCRIT 31.4 % (41-53); HEMOGLOBIN 10.1 g/dL (13.5-17.5); LYMPHOCYTES # (AUTO) 1.6 K/uL (1.0-4.8); LYMPHOCYTES % (AUTO) 20.9 % (22.0-44.0); MEAN CORPUSCULAR HEMOGLOBIN 24.8 pg (26.0-34.0); MEAN CORPUSCULAR HGB CONC 32.3 G/dL (31.0-37.0); MEAN CORPUSCULAR VOLUME 77 fL (80-100); MONOCYTES # (AUTO) 0.7 K/uL (0.1-1.0); MONOCYTES % (AUTO) 9.2 % (2.0-9.0); NEUTROPHILS % (AUTO) 66.5 % (40.0-70.0); PLATELET COUNT (AUTO) 265 K/uL (150-450); RED BLOOD CELL COUNT(AUTO) 4.09 MIL/uL (4.50-5.90); RED CELL DISTRIBUTION WIDTH 18.7 % (11.5-14.5)
[2019-03-16 00:15] LABS: CALCIUM, TOTAL 8.5 mg/dL (8.8-10.5); CREATININE 2.44 mg/dL (0.60-1.30); POTASSIUM 5.6 mmol/L (3.5-5.1)
[2019-03-16] MEDS ORDERED: SODIUM CHLORIDE 0.9% 1,000 ML IV ONE (01:15)
[2019-03-16 01:26] LABS: MAGNESIUM 2.2 mg/dL (1.80-2.40)
[2019-03-16 04:27] VITALS: BP 113/63
== END 2019-03-16 06:42 | disposition short-term general hospital (02) ==
LOC: EMS 22:00
DX: E87.5 Hyperkalemia (principal); N17.9 Acute kidney failure, unspecified; R05 Cough; G89.29 Other chronic pain; I10 Essential (primary) hypertension; M19.90 Unspecified osteoarthritis, unspecified site; F11.90 Opioid use, unspecified, uncomplicated; Z98.890 Other specified postprocedural states; Z79.899 Other long term (current) drug therapy
CPT/HCPCS: 83735; 93005

== ENCOUNTER 2019-03-24 19:41 | Emergency (ER) | payer BC, OTHER ==
[~2019-03-24] VITALS: Ht 175.3 cm; Wt 72.7 kg
[2019-03-24 22:04] LABS: BASOPHILS % (AUTO) 1.2 % (0.0-2.0); EOSINOPHILS % (AUTO) 5.9 % (1.0-6.0); HEMATOCRIT 31.2 % (41-53); HEMOGLOBIN 10.6 g/dL (13.5-17.5); LYMPHOCYTES # (AUTO) 1.6 K/uL (1.0-4.8); LYMPHOCYTES % (AUTO) 23.2 % (22.0-44.0); MEAN CORPUSCULAR HEMOGLOBIN 26.6 pg (26.0-34.0); MEAN CORPUSCULAR HGB CONC 33.9 G/dL (31.0-37.0); MEAN CORPUSCULAR VOLUME 79 fL (80-100); MONOCYTES # (AUTO) 0.7 K/uL (0.1-1.0); MONOCYTES % (AUTO) 10.1 % (2.0-9.0); NEUTROPHILS # (AUTO) 4.2 K/uL (1.8-7.7); NEUTROPHILS % (AUTO) 59.6 % (40.0-70.0); PLATELET COUNT (AUTO) 257 K/uL (150-450); RED BLOOD CELL COUNT(AUTO) 3.97 MIL/uL (4.50-5.90); RED CELL DISTRIBUTION WIDTH 19.9 % (11.5-14.5)
[2019-03-24 22:22] LABS: ANION GAP 9 mmol/L (8-16); CALCIUM, TOTAL 8.5 mg/dL (8.8-10.5); CARBON DIOXIDE 23 mmol/L (22-29); CHLORIDE 100 mmol/L (98-107); CREATININE 2.26 mg/dL (0.60-1.30); GLOMERULAR FILTR. RATE CALC 29 mL/min (>60); GLUCOSE,RANDOM 107 mg/dL (70-110); POTASSIUM 5.2 mmol/L (3.5-5.1); SODIUM SERUM 132 mmol/L (136-145); UREA NITROGEN, BLOOD 86 mg/dL (7-18)
[2019-03-24 22:25] LABS: ALANINE AMINOTRANSFERASE 108 U/L (12-78); ALBUMIN 3.4 g/dL (3.4-5.0); ALKALINE PHOSPHATASE 83 U/L (46-116); ASPARTATE AMINOTRANSFERASE 119 U/L (15-37); BILIRUBIN,TOTAL 0.4 mg/dL (0.1-1.0); TOTAL PROTEIN, SERUM 7.2 g/dL (6.4-8.2)
[2019-03-24 22:26] LABS: B-TYPE NATRIURETIC PEPTIDE 33 pg/mL (0-100)
[2019-03-24 22:55] VITALS: BP 111/63
[2019-03-24 23:15] LABS: AMPHET/METH SCREEN,URINE NEGATIVE (NEGATIVE); BARBITURATE SCREEN, URINE NEGATIVE (NEGATIVE); BENZODIAZEPINES SCREEN,URINE NEGATIVE (NEGATIVE); CANNABINOID SCREEN,URINE NEGATIVE (NEGATIVE); COCAINE SCREEN,URINE NEGATIVE (NEGATIVE); METHADONE SCREEN, URINE NEGATIVE (NEGATIVE); OPIATE SCREEN,URINE POSITIVE (NEGATIVE)
[2019-03-24 23:16] LABS: PHENCYCLIDINE SCREEN,URINE NEGATIVE (NEGATIVE)
[2019-03-25] MEDS ORDERED: SODIUM CHLORIDE 0.9% 1,000 ML IV ONE
== END 2019-03-25 00:41 | disposition home or self-care (01) ==
LOC: EMS 19:44
DX: J40 Bronchitis, not specified as acute or chronic (principal); I10 Essential (primary) hypertension; M19.90 Unspecified osteoarthritis, unspecified site; F11.10 Opioid abuse, uncomplicated; F19.10 Other psychoactive substance abuse, uncomplicated; Z98.890 Other specified postprocedural states
CPT/HCPCS: 36415; 71045; 80053; 80307; 83880; 84484; 85025; 85379; 99284; G0480

== ENCOUNTER 2019-04-16 20:18 | Emergency (ER) | payer BC, OTHER ==
[~2019-04-16] VITALS: Ht 175.3 cm; Wt 75.0 kg
[2019-04-16] MEDS ORDERED: FLUTICASONE PROPIONATE 50 MCG/SPRAY 16 GM NASAL SPRAY NASAL ONE (23:00)
[2019-04-16] MEDS ORDERED: SODIUM CHLORIDE 0.65% 44 ML NASAL SPRAY NASAL ONE (23:00)
[2019-04-16 23:16] VITALS: BP 120/70
== END 2019-04-16 23:22 | disposition home or self-care (01) ==
LOC: EMS 20:18
DX: J30.9 Allergic rhinitis, unspecified (principal); I10 Essential (primary) hypertension; M19.90 Unspecified osteoarthritis, unspecified site; F11.90 Opioid use, unspecified, uncomplicated; Z98.890 Other specified postprocedural states

== ENCOUNTER 2019-04-22 19:39 | Emergency (ER) | payer MEDICARE, OTHER ==
[~2019-04-22] VITALS: Ht 175.3 cm; Wt 77.3 kg
[2019-04-22 21:09] VITALS: BP 112/70
[2019-04-22] MEDS ORDERED: SODIUM CHLORIDE 0.65% 44 ML NASAL SPRAY NASAL ONE (21:15)
== END 2019-04-22 21:24 | disposition home or self-care (01) ==
LOC: EMS 19:39
DX: J34.2 Deviated nasal septum (principal); I10 Essential (primary) hypertension

== ENCOUNTER 2019-05-08 11:30 | Inpatient (IN) | payer MEDICARE, OTHER ==
[~2019-05-08] VITALS: Ht 167.6 cm; Wt 68.2 kg
[2019-05-08] MEDS ORDERED: NAPR-1025 PO (11:44)
[2019-05-08 12:34] LABS: BASOPHILS % (AUTO) 0.5 % (0.0-2.0); EOSINOPHILS % (AUTO) 1.5 % (1.0-6.0); HEMOGLOBIN 9.5 g/dL (13.5-17.5); LYMPHOCYTES # (AUTO) 0.5 K/uL (1.0-4.8); LYMPHOCYTES % (AUTO) 9.4 % (22.0-44.0); MEAN CORPUSCULAR HEMOGLOBIN 26.9 pg (26.0-34.0); MEAN CORPUSCULAR HGB CONC 32.6 G/dL (31.0-37.0); MEAN CORPUSCULAR VOLUME 82 fL (80-100); MONOCYTES # (AUTO) 0.5 K/uL (0.1-1.0); MONOCYTES % (AUTO) 10.4 % (2.0-9.0); NEUTROPHILS # (AUTO) 3.8 K/uL (1.8-7.7); NEUTROPHILS % (AUTO) 78.2 % (40.0-70.0); PLATELET COUNT (AUTO) 131 K/uL (150-450); RED BLOOD CELL COUNT(AUTO) 3.53 MIL/uL (4.50-5.90); RED CELL DISTRIBUTION WIDTH 19.3 % (11.5-14.5)
[2019-05-08] MEDS ORDERED: ACETAMINOPHEN 500 MG TABLET PO ONE (13:30)
[2019-05-08] MEDS ORDERED: SODIUM CHLORIDE 0.9% 1,000 ML IV ONE (13:45)
[2019-05-08] MEDS ORDERED: VANCOMYCIN HCL 1 GM/D5% WATER 200 ML IV ONE (13:45)
[2019-05-08] MEDS ORDERED: PIPERACILLIN SODIUM/TAZOBACTAM 4.5 GM in DEXTROSE 5%-WATER 100 ML IV ONE (13:45)
[2019-05-08] MEDS ORDERED: KETOROLAC TROMETHAMINE 30 MG/ML VIAL IVP ONE (13:45)
[2019-05-08 14:33] LABS: PROTHROMBIN TIME 10.7 SEC (9.4-11.6)
[2019-05-08 14:40] LABS: CALCIUM, TOTAL 7.7 mg/dL (8.8-10.5); CREATININE 1.22 mg/dL (0.60-1.30); POTASSIUM 4.1 mmol/L (3.5-5.1)
[2019-05-08 14:43] LABS: ALBUMIN 3.2 g/dL (3.4-5.0); BILIRUBIN,TOTAL 0.8 mg/dL (0.1-1.0); TOTAL PROTEIN, SERUM 7.1 g/dL (6.4-8.2)
[2019-05-08] MEDS ORDERED: IOVERSOL 320 MG/ML 100 ML VIAL ONE (14:46)
[2019-05-08] MEDS ORDERED: SODIUM CHLORIDE 0.9% 100 ML ONE (14:47)
[2019-05-08] MEDS ORDERED: SODIUM CL IRRIG SOLN BAG 0 ML IRRIG ONE (14:56)
[2019-05-08] MEDS ORDERED: LIDOCAINE 1%/EPI 1:200,000/PF 10 ML VIAL ONE (14:57)
[2019-05-08] MEDS ORDERED: BUPIVACAINE HCL/PF 0.5% 30 ML VIAL ONE (14:58)
[2019-05-08] MEDS ORDERED: SODIUM CHLORIDE 0.9% 500 ML IV ONE (16:57)
[2019-05-08 17:18] VITALS: BP 160/77
[2019-05-08] MEDS ORDERED: PNEUMOCOCCAL VACCINE POLYVALENT 0.5 ML VIAL [PPSV23] IM ONE (19:15)
[2019-05-08] MEDS ORDERED: INFLUENZA VIRUS VACCINE QVS 2019-20 (3YR+)/PF 60 MCG/0.5 ML SYRINGE IM ONE (19:15)
[2019-05-08 19:29] VITALS: BP 173/94
[2019-05-08] MEDS ORDERED: ACETAMINOPHEN 325 MG TABLET PO PRN ×2 (21:15→21:30)
[2019-05-08] MEDS ORDERED: ZOLPIDEM TARTRATE 5 MG TABLET PO PRN (21:30)
[2019-05-08] MEDS ORDERED: POTASSIUM CHL 10 MEQ/WATER 50 ML IV PRN (21:30)
[2019-05-08] MEDS ORDERED: POTASSIUM CHLORIDE 20 MEQ ER TABLET PO PRN (21:30)
[2019-05-08] MEDS ORDERED: ONDANSETRON HCL 4 MG/2 ML VIAL IVP PRN (21:30)
[2019-05-08] MEDS ORDERED: MAGNESIUM SULFATE 4 GM/WATER 100 ML IV PRN (21:30)
[2019-05-08] MEDS ORDERED: MAGNESIUM OXIDE 400 MG TABLET PO PRN (21:30)
[2019-05-08] MEDS ORDERED: 0.9% SODIUM CHLORIDE 10 ML SYRINGE IVP PRN (21:30)
[2019-05-08] MEDS ORDERED: MAGNESIUM SULFATE 2 GM/WATER 50 ML IV PRN (21:30)
[2019-05-08] MEDS: SODIUM CHLORIDE 0.9% 1,000 ML IV SCH (21:45)
[2019-05-08] MEDS ORDERED: VANCOMYCIN HCL 500 MG in DEXTROSE 5%-WATER 100 ML IV ONE (22:30)
[2019-05-08] MEDS: PIPERACILLIN/TAZO 3.375 GM/D5W 50 ML IV SCH (23:16)
[2019-05-08 23:22] VITALS: BP 146/71
[2019-05-09] MEDS: HEPARIN SODIUM,PORCINE 5,000 UNITS/ML VIAL SQ SCH ×4 (00:36→23:41)
[2019-05-09] MEDS: PIPERACILLIN/TAZO 3.375 GM/D5W 50 ML IV SCH ×4 (04:00→22:15)
[2019-05-09] MEDS: MORPHINE SULFATE 2 MG/ML SYRINGE IVP PRN ×3 (04:06→18:45)
[2019-05-09 05:15] VITALS: BP 135/61
[2019-05-09] MEDS ORDERED: VANCOMYCIN HCL 750 MG in DEXTROSE 5%-WATER 250 ML IV SCH (07:00)
[2019-05-09 07:52] LABS: BASOPHILS % (AUTO) 0.4 % (0.0-2.0); EOSINOPHILS % (AUTO) 1.7 % (1.0-6.0); HEMOGLOBIN 8.9 g/dL (13.5-17.5); LYMPHOCYTES # (AUTO) 0.6 K/uL (1.0-4.8); LYMPHOCYTES % (AUTO) 15.3 % (22.0-44.0); MEAN CORPUSCULAR HEMOGLOBIN 26.9 pg (26.0-34.0); MEAN CORPUSCULAR HGB CONC 32.9 G/dL (31.0-37.0); MEAN CORPUSCULAR VOLUME 82 fL (80-100); MONOCYTES # (AUTO) 0.4 K/uL (0.1-1.0); MONOCYTES % (AUTO) 9.7 % (2.0-9.0); NEUTROPHILS # (AUTO) 2.8 K/uL (1.8-7.7); NEUTROPHILS % (AUTO) 72.9 % (40.0-70.0); PLATELET COUNT (AUTO) 104 K/uL (150-450)
[2019-05-09 08:06] LABS: ALBUMIN 2.2 g/dL (3.4-5.0); ANION GAP 10 mmol/L (8-16); CALCIUM, TOTAL 7.8 mg/dL (8.8-10.5); CARBON DIOXIDE 19 mmol/L (22-29); CHLORIDE 108 mmol/L (98-107); CREATINE KINASE, TOTAL ONLY 53 U/L (39-308); CREATININE 1.02 mg/dL (0.60-1.30); GLOMERULAR FILTR. RATE CALC > 60 mL/min (>60); GLUCOSE,RANDOM 86 mg/dL (70-110); POTASSIUM 3.9 mmol/L (3.5-5.1); SODIUM SERUM 137 mmol/L (136-145); UREA NITROGEN, BLOOD 27 mg/dL (7-18)
[2019-05-09] MEDS: DOCUSATE SODIUM 100 MG CAPSULE PO SCH ×2 (08:37→20:08)
[2019-05-09] MEDS: PANTOPRAZOLE SODIUM 40 MG DR TABLET PO SCH (08:37)
[2019-05-09 08:38] VITALS: BP 145/64
[2019-05-09 11:25] VITALS: BP 137/64
[2019-05-09] MEDS ORDERED: VANCOMYCIN HCL 500 MG in DEXTROSE 5%-WATER 100 ML IV ONE (12:00)
[2019-05-09] MEDS: SODIUM CHLORIDE 0.9% 1,000 ML IV SCH (14:33)
[2019-05-09 15:29] VITALS: BP 152/70
[2019-05-09] MEDS: CLINDAMYCIN 900 MG/D5% WATER 50 ML IV SCH ×2 (16:23→23:41)
[2019-05-09 19:59] VITALS: BP 143/69
[2019-05-09] MEDS: VANCOMYCIN HCL 1 GM/D5% WATER 200 ML IV SCH (20:08)
[2019-05-10] VITALS (7 sets, daily range): BP systolic 129–164; BP diastolic 60–94
[2019-05-10] MEDS: PIPERACILLIN/TAZO 3.375 GM/D5W 50 ML IV SCH ×4 (04:25→22:20)
[2019-05-10] MEDS: CLINDAMYCIN 900 MG/D5% WATER 50 ML IV SCH ×3 (06:56→23:21)
[2019-05-10 07:14] LABS: AMPHET/METH SCREEN,URINE NEGATIVE (NEGATIVE); BARBITURATE SCREEN, URINE NEGATIVE (NEGATIVE); BENZODIAZEPINES SCREEN,URINE NEGATIVE (NEGATIVE); CANNABINOID SCREEN,URINE NEGATIVE (NEGATIVE); COCAINE SCREEN,URINE NEGATIVE (NEGATIVE); METHADONE SCREEN, URINE NEGATIVE (NEGATIVE); OPIATE SCREEN,URINE POSITIVE (NEGATIVE)
[2019-05-10 07:22] LABS: PHENCYCLIDINE SCREEN,URINE NEGATIVE (NEGATIVE)
[2019-05-10] MEDS: VANCOMYCIN HCL 1 GM/D5% WATER 200 ML IV SCH ×2 (07:55→20:12)
[2019-05-10] MEDS: DOCUSATE SODIUM 100 MG CAPSULE PO SCH ×2 (07:55→20:12)
[2019-05-10] MEDS: PANTOPRAZOLE SODIUM 40 MG DR TABLET PO SCH (07:55)
[2019-05-10] MEDS: HEPARIN SODIUM,PORCINE 5,000 UNITS/ML VIAL SQ SCH ×3 (07:55→23:21)
[2019-05-10] MEDS: MORPHINE SULFATE 2 MG/ML SYRINGE IVP PRN ×2 (10:09→20:10)
[2019-05-10 13:07] LABS: BASOPHILS % (AUTO) 0.4 % (0.0-2.0); EOSINOPHILS % (AUTO) 0.4 % (1.0-6.0); HEMATOCRIT 30.3 % (41-53); LYMPHOCYTES % (AUTO) 18.5 % (22.0-44.0); MEAN CORPUSCULAR HEMOGLOBIN 27.1 pg (26.0-34.0); MEAN CORPUSCULAR HGB CONC 33.1 G/dL (31.0-37.0); MEAN CORPUSCULAR VOLUME 82 fL (80-100); MONOCYTES # (AUTO) 0.2 K/uL (0.1-1.0); MONOCYTES % (AUTO) 3.3 % (2.0-9.0); NEUTROPHILS % (AUTO) 77.4 % (40.0-70.0); PLATELET COUNT (AUTO) 137 K/uL (150-450); RED BLOOD CELL COUNT(AUTO) 3.69 MIL/uL (4.50-5.90); RED CELL DISTRIBUTION WIDTH 19.2 % (11.5-14.5)
[2019-05-10 13:27] LABS: % IRON SATURATION 4.2 % (30-44)
[2019-05-10 13:35] LABS: ANION GAP 13 mmol/L (8-16); CALCIUM, TOTAL 8.2 mg/dL (8.8-10.5); CARBON DIOXIDE 19 mmol/L (22-29); CHLORIDE 107 mmol/L (98-107); CREATININE 1.18 mg/dL (0.60-1.30); GLOMERULAR FILTR. RATE CALC > 60 mL/min (>60); GLUCOSE,RANDOM 141 mg/dL (70-110); POTASSIUM 4.2 mmol/L (3.5-5.1); SODIUM SERUM 139 mmol/L (136-145); UREA NITROGEN, BLOOD 22 mg/dL (7-18)
[2019-05-10] MEDS: SODIUM CHLORIDE 0.9% 1,000 ML IV SCH (13:51)
[2019-05-10] MEDS: SIMETHICONE 80 MG CHEWABLE TABLET CHEW PRN (20:10)
[2019-05-11] MEDS: PIPERACILLIN/TAZO 3.375 GM/D5W 50 ML IV SCH ×3 (03:20→16:00)
[2019-05-11 05:00] VITALS: BP 140/69
[2019-05-11] MEDS: CLINDAMYCIN 900 MG/D5% WATER 50 ML IV SCH ×2 (06:00→13:52)
[2019-05-11] MEDS: PANTOPRAZOLE SODIUM 40 MG DR TABLET PO SCH (07:59)
[2019-05-11] MEDS: DOCUSATE SODIUM 100 MG CAPSULE PO SCH ×2 (07:59→20:59)
[2019-05-11] MEDS: VANCOMYCIN HCL 1 GM/D5% WATER 200 ML IV SCH (08:01)
[2019-05-11] MEDS: HEPARIN SODIUM,PORCINE 5,000 UNITS/ML VIAL SQ SCH ×3 (08:05→23:32)
[2019-05-11] MEDS: MORPHINE SULFATE 2 MG/ML SYRINGE IVP PRN ×2 (08:10→13:43)
[2019-05-11 08:15] VITALS: BP 177/81
[2019-05-11 08:24] VITALS: BP 138/71
[2019-05-11 08:44] LABS: BASOPHILS % (AUTO) 0.8 % (0.0-2.0); EOSINOPHILS % (AUTO) 0.8 % (1.0-6.0); HEMATOCRIT 28.8 % (41-53); HEMOGLOBIN 9.8 g/dL (13.5-17.5); LYMPHOCYTES # (AUTO) 1.2 K/uL (1.0-4.8); LYMPHOCYTES % (AUTO) 22.1 % (22.0-44.0); MEAN CORPUSCULAR HEMOGLOBIN 27.4 pg (26.0-34.0); MEAN CORPUSCULAR HGB CONC 33.9 G/dL (31.0-37.0); MEAN CORPUSCULAR VOLUME 81 fL (80-100); MONOCYTES # (AUTO) 0.4 K/uL (0.1-1.0); MONOCYTES % (AUTO) 6.6 % (2.0-9.0); NEUTROPHILS # (AUTO) 3.8 K/uL (1.8-7.7); NEUTROPHILS % (AUTO) 69.7 % (40.0-70.0); PLATELET COUNT (AUTO) 165 K/uL (150-450); RED BLOOD CELL COUNT(AUTO) 3.57 MIL/uL (4.50-5.90); RED CELL DISTRIBUTION WIDTH 18.9 % (11.5-14.5)
[2019-05-11 09:00] LABS: CREATININE 1.22 mg/dL (0.60-1.30); POTASSIUM 3.7 mmol/L (3.5-5.1); VANCOMYCIN,RANDOM 20.8 mcg/mL (25.0-50.0)
[2019-05-11] MEDS: SODIUM CHLORIDE 0.9% 1,000 ML IV SCH (10:12)
[2019-05-11 11:11] VITALS: BP 158/80
[2019-05-11] MEDS ORDERED: IBUPROFEN 400 MG TABLET PO PRN (11:30)
[2019-05-11] MEDS: SIMETHICONE 80 MG CHEWABLE TABLET CHEW PRN (11:58)
[2019-05-11 16:15] VITALS: BP 168/78
[2019-05-11] MEDS: SULFAMETHOX/TRIMETH DS 800-160 MG/TABLET PO SCH (20:59)
[2019-05-11] MEDS: CEPHALEXIN MONOHYDRATE 500 MG CAPSULE PO SCH (20:59)
[2019-05-11 23:25] VITALS: BP 146/64
[2019-05-12 06:22] LABS: BASOPHILS % (AUTO) 0.5 % (0.0-2.0); EOSINOPHILS % (AUTO) 1.6 % (1.0-6.0); HEMATOCRIT 28.1 % (41-53); HEMOGLOBIN 9.3 g/dL (13.5-17.5); LYMPHOCYTES # (AUTO) 0.9 K/uL (1.0-4.8); LYMPHOCYTES % (AUTO) 20.8 % (22.0-44.0); MEAN CORPUSCULAR HEMOGLOBIN 26.5 pg (26.0-34.0); MEAN CORPUSCULAR HGB CONC 32.9 G/dL (31.0-37.0); MEAN CORPUSCULAR VOLUME 80 fL (80-100); MONOCYTES # (AUTO) 0.4 K/uL (0.1-1.0); MONOCYTES % (AUTO) 8.7 % (2.0-9.0); NEUTROPHILS # (AUTO) 2.9 K/uL (1.8-7.7); NEUTROPHILS % (AUTO) 68.4 % (40.0-70.0); PLATELET COUNT (AUTO) 185 K/uL (150-450)
[2019-05-12 06:30] LABS: ANION GAP 12 mmol/L (8-16); CALCIUM, TOTAL 8.2 mg/dL (8.8-10.5); CARBON DIOXIDE 19 mmol/L (22-29); CHLORIDE 105 mmol/L (98-107); CREATININE 1.02 mg/dL (0.60-1.30); GLOMERULAR FILTR. RATE CALC > 60 mL/min (>60); GLUCOSE,RANDOM 93 mg/dL (70-110); POTASSIUM 3.8 mmol/L (3.5-5.1); SODIUM SERUM 136 mmol/L (136-145); UREA NITROGEN, BLOOD 18 mg/dL (7-18)
[2019-05-12 08:16] VITALS: BP 179/70
[2019-05-12] MEDS: SULFAMETHOX/TRIMETH DS 800-160 MG/TABLET PO SCH ×2 (08:16→20:02)
[2019-05-12] MEDS: CEPHALEXIN MONOHYDRATE 500 MG CAPSULE PO SCH ×4 (08:16→20:02)
[2019-05-12] MEDS: DOCUSATE SODIUM 100 MG CAPSULE PO SCH ×2 (08:16→20:02)
[2019-05-12] MEDS: PANTOPRAZOLE SODIUM 40 MG DR TABLET PO SCH (08:16)
[2019-05-12] MEDS: HEPARIN SODIUM,PORCINE 5,000 UNITS/ML VIAL SQ SCH ×3 (08:17→23:40)
[2019-05-12 11:40] VITALS: BP 186/97
[2019-05-12 11:44] VITALS: BP 152/85
[2019-05-12] MEDS: MORPHINE SULFATE 2 MG/ML SYRINGE IVP PRN ×2 (12:32→20:02)
[2019-05-12] MEDS: LISINOPRIL 5 MG TABLET PO SCH (13:59)
[2019-05-12] MEDS: AmLODIPine BESYLATE 5 MG TABLET PO SCH ×2 (13:59→20:02)
[2019-05-12 15:40] VITALS: BP 170/78
[2019-05-12 19:45] VITALS: BP 154/74
[2019-05-12 23:28] VITALS: BP 152/84
[2019-05-13 05:21] VITALS: BP 149/66
[2019-05-13 06:36] LABS: BASOPHILS % (AUTO) 0.8 % (0.0-2.0); EOSINOPHILS % (AUTO) 1.1 % (1.0-6.0); HEMATOCRIT 30.8 % (41-53); LYMPHOCYTES # (AUTO) 1.6 K/uL (1.0-4.8); LYMPHOCYTES % (AUTO) 25.3 % (22.0-44.0); MEAN CORPUSCULAR HEMOGLOBIN 26.4 pg (26.0-34.0); MEAN CORPUSCULAR HGB CONC 32.6 G/dL (31.0-37.0); MEAN CORPUSCULAR VOLUME 81 fL (80-100); MONOCYTES # (AUTO) 0.7 K/uL (0.1-1.0); MONOCYTES % (AUTO) 10.6 % (2.0-9.0); NEUTROPHILS # (AUTO) 3.9 K/uL (1.8-7.7); NEUTROPHILS % (AUTO) 62.2 % (40.0-70.0); PLATELET COUNT (AUTO) 213 K/uL (150-450); RED BLOOD CELL COUNT(AUTO) 3.81 MIL/uL (4.50-5.90); RED CELL DISTRIBUTION WIDTH 19.1 % (11.5-14.5)
[2019-05-13 08:12] VITALS: BP 151/66
[2019-05-13] MEDS: DOCUSATE SODIUM 100 MG CAPSULE PO SCH (08:36)
[2019-05-13] MEDS: CEPHALEXIN MONOHYDRATE 500 MG CAPSULE PO SCH ×3 (08:36→16:35)
[2019-05-13] MEDS: AmLODIPine BESYLATE 5 MG TABLET PO SCH (08:36)
[2019-05-13] MEDS: SULFAMETHOX/TRIMETH DS 800-160 MG/TABLET PO SCH (08:36)
[2019-05-13] MEDS: HEPARIN SODIUM,PORCINE 5,000 UNITS/ML VIAL SQ SCH ×2 (08:36→16:35)
[2019-05-13] MEDS: PANTOPRAZOLE SODIUM 40 MG DR TABLET PO SCH (08:36)
[2019-05-13] MEDS: LISINOPRIL 5 MG TABLET PO SCH (08:37)
[2019-05-13] MEDS: MORPHINE SULFATE 2 MG/ML SYRINGE IVP PRN ×2 (08:42→12:32)
[2019-05-13 11:05] LABS: ANION GAP 12 mmol/L (8-16); CALCIUM, TOTAL 8.3 mg/dL (8.8-10.5); CARBON DIOXIDE 21 mmol/L (22-29); CHLORIDE 102 mmol/L (98-107); CREATININE 1.16 mg/dL (0.60-1.30); GLOMERULAR FILTR. RATE CALC > 60 mL/min (>60); GLUCOSE,RANDOM 100 mg/dL (70-110); POTASSIUM 3.7 mmol/L (3.5-5.1); SODIUM SERUM 135 mmol/L (136-145); UREA NITROGEN, BLOOD 15 mg/dL (7-18)
[2019-05-13 11:18] VITALS: BP 146/76
[2019-05-13 15:33] VITALS: BP 158/77
[2019-05-13] MEDS ORDERED: VANCOMYCIN HCL 1.5 GM in DEXTROSE 5%-WATER 250 ML IV ONE (20:30)
[2019-05-13] MEDS ORDERED: AmLODIPine BESYLATE 5 MG TABLET PO SCH (21:00)
[2019-05-14] MEDS ORDERED: VANCOMYCIN HCL 750 MG in DEXTROSE 5%-WATER 250 ML IV SCH (08:00)
== END 2019-05-13 17:06 | disposition left against medical advice (07) | DRG 603 ==
LOC: EMS 11:36 → 5S 15:30 → UNDOADMIN 15:30 → 4E 15:30
PROVIDERS: ADMIT Hospitalist; ATTEND Hospitalist
DX: L03.116 Cellulitis of left lower limb (principal); I10 Essential (primary) hypertension; M19.90 Unspecified osteoarthritis, unspecified site; D64.9 Anemia, unspecified; F11.10 Opioid abuse, uncomplicated; R60.0 Localized edema; Z53.29 Procedure and treatment not carried out because of patient's decision for other reasons; Z82.49 Family history of ischemic heart disease and other diseases of the circulatory system; Z82.5 Family history of asthma and other chronic lower respiratory diseases; Z72.89 Other problems related to lifestyle
CPT/HCPCS: 73701; 80307; 83540; 83550; 83735; 85379; 86850; 86900; 86901; 87040; 87205; 93970; 97162; G0378; J1644; J1885; J2270; J2543; J3370; J3490; J7030; J7040; J7050; J7060

== ENCOUNTER 2019-08-29 10:33 | Emergency (ER) | payer MEDICARE, OTHER ==
[~2019-08-29] VITALS: Ht 170.2 cm; Wt 81.8 kg
[~2019-08-29 10:33] MED LIST changes: -AMLO5TAB9 PO; -GABA-531 PO; +NAPR-1025 PO
[2019-08-29] MEDS ORDERED: ACETAMINOPHEN 500 MG TABLET PO ONE (11:30)
[2019-08-29] MEDS ORDERED: BACITRACIN 0.9 GM PACKET OINTMENT TP ONE (11:30)
[2019-08-29] MEDS ORDERED: LIDOCAINE/PF 1% 5 ML VIAL INJ ONE (11:30)
[2019-08-29] MEDS ORDERED: PERTUSS(ACELL),DIPH,TET VAC/PF 0.5 ML VIAL IM ONE (11:30)
[2019-08-29 13:47] VITALS: BP 150/73
== END 2019-08-29 14:15 | disposition home or self-care (01) ==
LOC: EMS 10:41
DX: S02.2XXB Fracture of nasal bones, initial encounter for open fracture (principal); S01.81XA Laceration without foreign body of other part of head, initial encounter; M25.561 Pain in right knee; M25.562 Pain in left knee; I10 Essential (primary) hypertension; W01.0XXA Fall on same level from slipping, tripping and stumbling without subsequent striking against object, initial encounter; Y93.89 Activity, other specified; Y92.89 Other specified places as the place of occurrence of the external cause; Y99.8 Other external cause status
CPT/HCPCS: 12013; 70450; 70486; 72125; 90471; 90715; 99285; J2001

== ENCOUNTER 2019-08-31 15:15 | Emergency (ER) | payer MEDICARE, OTHER ==
[~2019-08-31] VITALS: Ht 175.3 cm; Wt 81.8 kg
[2019-08-31] MEDS ORDERED: NALOXONE HCL 1 MG/ML 2 ML SYG IM ONE (17:00)
[2019-08-31 18:45] VITALS: BP 122/71
== END 2019-08-31 19:10 | disposition home or self-care (01) ==
LOC: EMS 15:17
DX: M25.562 Pain in left knee (principal); I10 Essential (primary) hypertension; F11.90 Opioid use, unspecified, uncomplicated
CPT/HCPCS: 73562; 96372; 99283; J2310

== ENCOUNTER 2019-09-07 14:18 | Emergency (ER) | payer MEDICARE, OTHER ==
[~2019-09-07] VITALS: Ht 175.3 cm; Wt 77.3 kg
[2019-09-07 14:23] VITALS: BP 110/57
== END 2019-09-07 15:18 | disposition home or self-care (01) ==
LOC: EMS 14:26
DX: S01.81XD Laceration without foreign body of other part of head, subsequent encounter (principal); F11.90 Opioid use, unspecified, uncomplicated; X58.XXXD Exposure to other specified factors, subsequent encounter
CPT/HCPCS: Z7502

== ENCOUNTER 2019-09-13 14:20 | Emergency (ER) | payer MEDICARE, OTHER ==
[~2019-09-13] VITALS: Ht 175.3 cm; Wt 72.7 kg
[2019-09-13] MEDS ORDERED: FLUTICASONE PROPIONATE 50 MCG/SPRAY 16 GM NASAL SPRAY NASAL ONE (16:30)
[2019-09-13 17:25] VITALS: BP 110/62
== END 2019-09-13 17:52 | disposition home or self-care (01) ==
LOC: EMS 14:25
DX: J34.2 Deviated nasal septum (principal); R05 Cough; R09.81 Nasal congestion; I10 Essential (primary) hypertension; Z20.828 Contact with and (suspected) exposure to other viral communicable diseases
CPT/HCPCS: 71045; 99284; U0003

== ENCOUNTER 2019-11-05 16:26 | Emergency (ER) | payer MEDICARE, OTHER ==
[~2019-11-05] VITALS: Ht 170.2 cm; Wt 81.8 kg
[2019-11-05] MEDS ORDERED: NAPR250T4 PO (16:55)
[2019-11-05 19:54] VITALS: BP 114/52
[2019-11-05] MEDS ORDERED: KETOROLAC TROMETHAMINE 30 MG/ML VIAL IM ONE (20:30)
== END 2019-11-05 20:56 | disposition home or self-care (01) ==
LOC: EMS 16:26
DX: M25.562 Pain in left knee (principal); I10 Essential (primary) hypertension
CPT/HCPCS: 73562; 96372; 99283; J1885

== ENCOUNTER 2020-11-27 15:28 | Emergency (ER) | payer MEDICARE, OTHER ==
[~2020-11-27] VITALS: Ht 170.2 cm; Wt 69.8 kg
[~2020-11-27 15:28] MED LIST changes: -NAPR-1025 PO; +NAPR-1197 PO
[2020-11-27 16:08] LABS: COVID AG,FIA SOURCE NASOPHARYNGEAL
[2020-11-27 16:11] LABS: BASOPHILS % (AUTO) 0.8 % (0.0-2.0); EOSINOPHILS % (AUTO) 6.9 % (1.0-6.0); HEMATOCRIT 33.9 % (41-53); HEMOGLOBIN 11.3 g/dL (13.5-17.5); LYMPHOCYTES % (AUTO) 23.5 % (22.0-44.0); MEAN CORPUSCULAR HEMOGLOBIN 29.6 pg (26.0-34.0); MEAN CORPUSCULAR HGB CONC 33.3 G/dL (31.0-37.0); MEAN CORPUSCULAR VOLUME 89 fL (80-100); MONOCYTES # (AUTO) 0.4 K/uL (0.1-1.0); MONOCYTES % (AUTO) 9.7 % (2.0-9.0); NEUTROPHILS # (AUTO) 2.6 K/uL (1.8-7.7); NEUTROPHILS % (AUTO) 59.1 % (40.0-70.0); PLATELET COUNT (AUTO) 177 K/uL (150-450); RED BLOOD CELL COUNT(AUTO) 3.82 MIL/uL (4.50-5.90)
[2020-11-27 16:34] LABS: ANION GAP 12 mmol/L (8-16); CALCIUM, TOTAL 8.2 mg/dL (8.8-10.5); CARBON DIOXIDE 22 mmol/L (22-29); CHLORIDE 112 mmol/L (98-107); CREATININE 1.04 mg/dL (0.60-1.30); GLOMERULAR FILTR. RATE CALC > 60 mL/min (>60); GLUCOSE,RANDOM 89 mg/dL (70-110); POTASSIUM 3.9 mmol/L (3.5-5.1); SODIUM SERUM 146 mmol/L (136-145); UREA NITROGEN, BLOOD 36 mg/dL (7-18)
[2020-11-27 16:48] LABS: ALANINE AMINOTRANSFERASE 117 U/L (12-78); ALBUMIN 3.3 g/dL (3.4-5.0); ALKALINE PHOSPHATASE 116 U/L (46-116); ASPARTATE AMINOTRANSFERASE 93 U/L (15-37); BILIRUBIN,TOTAL 0.6 mg/dL (0.1-1.0); TOTAL PROTEIN, SERUM 7.1 g/dL (6.4-8.2)
[2020-11-27 16:49] LABS: ACETAMINOPHEN < 2 mcg/mL (10-30)
[2020-11-27 17:10] LABS: SALICYLATE 0.4 mg/dL (2.8-20.0)
[2020-11-27 19:39] VITALS: BP 129/78
== END 2020-11-27 19:45 | disposition home or self-care (01) ==
LOC: EMS 15:40
DX: T40.2X1A Poisoning by other opioids, accidental (unintentional), initial encounter (principal); Z20.822 Contact with and (suspected) exposure to COVID-19; I10 Essential (primary) hypertension; Y92.89 Other specified places as the place of occurrence of the external cause
CPT/HCPCS: 36415; 70450; 71045; 80053; 85025; 87426; 93005; 99285; G0480; G0481

== ENCOUNTER 2021-12-30 20:25 | Inpatient (IN) | payer MEDICARE, OTHER ==
[~2021-12-30] VITALS: Ht 175.3 cm; Wt 80.6 kg
[2021-12-30] MEDS ORDERED: PERTUSS(ACELL),DIPH,TET VAC/PF 0.5 ML SYRINGE IM. ONE (22:15)
[2021-12-30] MEDS ORDERED: BACITRACIN 0.9 GM PACKET OINTMENT TP ONE (22:15)
[2021-12-30] MEDS ORDERED: ACETAMINOPHEN 500 MG TABLET PO ONE (22:15)
[2021-12-30 22:51] LABS: ANION GAP 12 mmol/L (8-16); CALCIUM, TOTAL 9.3 mg/dL (8.8-10.5); CARBON DIOXIDE 21 mmol/L (22-29); CHLORIDE 106 mmol/L (98-107); CREATININE 0.73 mg/dL (0.60-1.30); GLUCOSE,RANDOM 104 mg/dL (70-110); POTASSIUM 4.9 mmol/L (3.5-5.1); SODIUM SERUM 139 mmol/L (136-145); UREA NITROGEN, BLOOD 22 mg/dL (7-18)
[2021-12-30 22:54] LABS: GLOMERULAR FILTR. RATE CALC > 60 mL/min (>60)
[2021-12-30 22:57] LABS: ALBUMIN 3.5 g/dL (3.4-5.0); ALKALINE PHOSPHATASE 105 U/L (46-116); BILIRUBIN,TOTAL 0.8 mg/dL (0.1-1.0)
[2021-12-30 23:09] LABS: EOSINOPHILS % (AUTO) 3.9 % (1.0-6.0); HEMATOCRIT 41.9 % (41-53); HEMOGLOBIN 13.8 g/dL (13.5-17.5); LYMPHOCYTES # (AUTO) 1.1 K/uL (1.0-4.8); LYMPHOCYTES % (AUTO) 27.5 % (22.0-44.0); MEAN CORPUSCULAR HEMOGLOBIN 29.7 pg (26.0-34.0); MEAN CORPUSCULAR HGB CONC 32.8 G/dL (31.0-37.0); MEAN CORPUSCULAR VOLUME 91 fL (80-100); MONOCYTES # (AUTO) 0.5 K/uL (0.1-1.0); MONOCYTES % (AUTO) 11.6 % (2.0-9.0); NEUTROPHILS # (AUTO) 2.2 K/uL (1.8-7.7); PLATELET COUNT (AUTO) 129 K/uL (150-450); RED BLOOD CELL COUNT(AUTO) 4.63 MIL/uL (4.50-5.90); RED CELL DISTRIBUTION WIDTH 15.1 % (11.5-14.5)
[2021-12-30 23:09] LABS: ASPARTATE AMINOTRANSFERASE 169 U/L (15-37)
[2021-12-30 23:10] LABS: ALANINE AMINOTRANSFERASE 151 U/L (12-78)
[2021-12-31] MEDS ORDERED: ACETAMINOPHEN 500 MG TABLET PO ONE (01:30)
[2021-12-31] MEDS ORDERED: SODIUM CHLORIDE 0.9% 1,000 ML IV ONE (01:30)
[2021-12-31] MEDS ORDERED: DiphenhydrAMINE HCL 25 MG/10 ML SOLUTION UDCUP PO ONE (01:30)
[2021-12-31] MEDS ORDERED: KETOROLAC TROMETHAMINE 30 MG/ML VIAL IVP ONE (01:30)
[2021-12-31 02:13] LABS: LACTIC ACID 1.2 mmol/L (0.4-2.0)
[2021-12-31 02:55] LABS: COVID AG,FIA SOURCE NASOPHARYNGEAL
[2021-12-31] MEDS ORDERED: ONDANSETRON HCL 4 MG/2 ML VIAL IVP ONE (08:30)
[2021-12-31] MEDS ORDERED: ONDANSETRON HCL 4 MG/2 ML VIAL IVP PRN (08:30)
[2021-12-31] MEDS ORDERED: ACETAMINOPHEN 325 MG TABLET PO PRN (08:30)
[2021-12-31] MEDS ORDERED: MAG HYDROX/AL HYDROX/SIMETH ES 30 ML SUSPENSION UDCUP PO ONE (08:30)
[2021-12-31] MEDS ORDERED: ChlordiazePOXIDE HCL 25 MG CAPSULE PO ONE (08:30)
[2021-12-31] MEDS: FAMOTIDINE 20 MG TABLET PO SCH (09:03)
[2021-12-31] MEDS: ASPIRIN 81 MG CHEWABLE TABLET PO SCH (09:03)
[2021-12-31] MEDS: DOCUSATE SODIUM 100 MG CAPSULE PO SCH ×2 (09:03→21:00)
[2021-12-31] MEDS: MULTIVITAMINS WITH MINERALS, THERAPEUTIC TABLET PO SCH (09:03)
[2021-12-31] MEDS: AmLODIPine BESYLATE 5 MG TABLET PO SCH (09:04)
[2021-12-31] MEDS: HEPARIN SODIUM,PORCINE 5,000 UNITS/ML VIAL SQ SCH (16:00)
[2021-12-31 18:59] LABS: AMPHET/METH SCREEN,URINE NEGATIVE (NEGATIVE); BARBITURATE SCREEN, URINE NEGATIVE (NEGATIVE); BENZODIAZEPINES SCREEN,URINE POSITIVE (NEGATIVE); CANNABINOID SCREEN,URINE NEGATIVE (NEGATIVE); COCAINE SCREEN,URINE NEGATIVE (NEGATIVE); METHADONE SCREEN, URINE NEGATIVE (NEGATIVE); OPIATE SCREEN,URINE NEGATIVE (NEGATIVE)
[2021-12-31 19:00] LABS: PHENCYCLIDINE SCREEN,URINE NEGATIVE (NEGATIVE)
[2021-12-31 21:23] VITALS: BP 162/78
[2022-01-01] MEDS: HEPARIN SODIUM,PORCINE 5,000 UNITS/ML VIAL SQ SCH ×3 (00:08→16:07)
[2022-01-01] MEDS: OxyCODONE HCL/ACETAMINOPHEN 5-325 MG TABLET PO PRN ×3 (00:08→21:21)
[2022-01-01] MEDS ORDERED: PNEUMOCOCCAL VACCINE POLYVALENT 0.5 ML VIAL [PPSV23] IM. ONE (03:30)
[2022-01-01] MEDS ORDERED: INFLUENZA VIRUS VACCINE QVS 2022-23 (6MO+)/PF 60 MCG/0.5 ML SYRINGE IM. ONE (03:30)
[2022-01-01 04:10] VITALS: BP 152/89
[2022-01-01 08:03] VITALS: BP 154/87
[2022-01-01] MEDS: DOCUSATE SODIUM 100 MG CAPSULE PO SCH ×2 (09:12→21:00)
[2022-01-01] MEDS: FAMOTIDINE 20 MG TABLET PO SCH (09:13)
[2022-01-01] MEDS: MULTIVITAMINS WITH MINERALS, THERAPEUTIC TABLET PO SCH (09:13)
[2022-01-01] MEDS: AmLODIPine BESYLATE 5 MG TABLET PO SCH (09:13)
[2022-01-01] MEDS: ASPIRIN 81 MG CHEWABLE TABLET PO SCH (09:14)
[2022-01-01 12:14] VITALS: BP 118/74
[2022-01-01 16:06] VITALS: BP 122/63
[2022-01-01 20:27] VITALS: BP 129/62
[2022-01-02 00:02] VITALS: BP 157/70
[2022-01-02] MEDS: HEPARIN SODIUM,PORCINE 5,000 UNITS/ML VIAL SQ SCH ×3 (00:16→16:00)
[2022-01-02 05:10] VITALS: BP 142/76
[2022-01-02 07:56] VITALS: BP 158/86
[2022-01-02] MEDS: DOCUSATE SODIUM 100 MG CAPSULE PO SCH ×2 (08:01→20:09)
[2022-01-02] MEDS: AmLODIPine BESYLATE 5 MG TABLET PO SCH (08:01)
[2022-01-02] MEDS: FAMOTIDINE 20 MG TABLET PO SCH (08:01)
[2022-01-02] MEDS: MULTIVITAMINS WITH MINERALS, THERAPEUTIC TABLET PO SCH (08:01)
[2022-01-02] MEDS: OxyCODONE HCL/ACETAMINOPHEN 5-325 MG TABLET PO PRN ×4 (08:01→20:08)
[2022-01-02] MEDS: ASPIRIN 81 MG CHEWABLE TABLET PO SCH (08:02)
[2022-01-02 11:38] VITALS: BP 114/62
[2022-01-02 16:01] VITALS: BP 125/65
[2022-01-02 20:37] VITALS: BP 138/67
[2022-01-03] MEDS: OxyCODONE HCL/ACETAMINOPHEN 5-325 MG TABLET PO PRN ×5 (00:31→20:24)
[2022-01-03 04:51] VITALS: BP 126/63
[2022-01-03 08:03] VITALS: BP 136/56
[2022-01-03] MEDS: HEPARIN SODIUM,PORCINE 5,000 UNITS/ML VIAL SQ SCH ×4 (08:50→23:34)
[2022-01-03] MEDS: ASPIRIN 81 MG CHEWABLE TABLET PO SCH (08:50)
[2022-01-03] MEDS: DOCUSATE SODIUM 100 MG CAPSULE PO SCH ×2 (08:52→20:32)
[2022-01-03] MEDS: FAMOTIDINE 20 MG TABLET PO SCH (08:53)
[2022-01-03] MEDS: MULTIVITAMINS WITH MINERALS, THERAPEUTIC TABLET PO SCH (08:53)
[2022-01-03] MEDS: AmLODIPine BESYLATE 5 MG TABLET PO SCH (08:53)
[2022-01-03 11:49] VITALS: BP 107/67
[2022-01-03 15:36] VITALS: BP 127/66
[2022-01-03 20:00] VITALS: BP 111/52
[2022-01-04] MEDS: OxyCODONE HCL/ACETAMINOPHEN 5-325 MG TABLET PO PRN ×3 (03:27→19:57)
[2022-01-04 05:06] VITALS: BP 131/66
[2022-01-04] MEDS: HEPARIN SODIUM,PORCINE 5,000 UNITS/ML VIAL SQ SCH ×3 (08:41→23:39)
[2022-01-04] MEDS: FAMOTIDINE 20 MG TABLET PO SCH (08:41)
[2022-01-04] MEDS: ASPIRIN 81 MG CHEWABLE TABLET PO SCH (08:42)
[2022-01-04] MEDS: MULTIVITAMINS WITH MINERALS, THERAPEUTIC TABLET PO SCH (08:42)
[2022-01-04] MEDS: AmLODIPine BESYLATE 5 MG TABLET PO SCH (08:42)
[2022-01-04] MEDS: DOCUSATE SODIUM 100 MG CAPSULE PO SCH ×2 (08:43→19:58)
[2022-01-04 15:59] VITALS: BP 139/80
[2022-01-04 17:35] LABS: APPEARANCE,URINE CLEAR (CLEAR); BILIRUBIN,URINE NEGATIVE (NEGATIVE); GLUCOSE, URINE (UA) NEGATIVE (NEGATIVE); KETONES,URINE NEGATIVE (NEGATIVE); LEUKOCYTE ESTERASE ,URINE NEGATIVE (NEGATIVE); NITRATE,URINE NEGATIVE (NEGATIVE); OCCULT BLOOD,URINE NEGATIVE (NEGATIVE); PROTEIN,URINE NEGATIVE (NEGATIVE); SPECIFIC GRAVITIY, URINE 1.007 (1.003-1.030); UROBILINOGEN,URINE <=1.0 mg/dL (<=1.0)
[2022-01-04 19:38] VITALS: BP 137/67
[2022-01-05 04:20] VITALS: BP 140/52
[2022-01-05 07:08] VITALS: BP 150/80
[2022-01-05] MEDS: DOCUSATE SODIUM 100 MG CAPSULE PO SCH ×2 (08:00→19:47)
[2022-01-05] MEDS: FAMOTIDINE 20 MG TABLET PO SCH (08:03)
[2022-01-05] MEDS: MULTIVITAMINS WITH MINERALS, THERAPEUTIC TABLET PO SCH (08:03)
[2022-01-05] MEDS: HEPARIN SODIUM,PORCINE 5,000 UNITS/ML VIAL SQ SCH ×2 (08:03→16:23)
[2022-01-05] MEDS: ASPIRIN 81 MG CHEWABLE TABLET PO SCH (08:03)
[2022-01-05] MEDS: AmLODIPine BESYLATE 5 MG TABLET PO SCH (08:03)
[2022-01-05 10:00] VITALS: BP 136/82
[2022-01-05] MEDS: OxyCODONE HCL/ACETAMINOPHEN 5-325 MG TABLET PO PRN ×2 (10:16→19:48)
[2022-01-05 16:00] VITALS: BP 142/78
[2022-01-05 19:25] VITALS: BP 128/75
[2022-01-06] MEDS: HEPARIN SODIUM,PORCINE 5,000 UNITS/ML VIAL SQ SCH ×4 (00:04→23:47)
[2022-01-06 04:50] VITALS: BP 146/85
[2022-01-06 07:21] VITALS: BP 153/71
[2022-01-06] MEDS: OxyCODONE HCL/ACETAMINOPHEN 5-325 MG TABLET PO PRN ×3 (08:15→21:10)
[2022-01-06] MEDS: MULTIVITAMINS WITH MINERALS, THERAPEUTIC TABLET PO SCH (08:16)
[2022-01-06] MEDS: ASPIRIN 81 MG CHEWABLE TABLET PO SCH (08:16)
[2022-01-06] MEDS: FAMOTIDINE 20 MG TABLET PO SCH (08:16)
[2022-01-06] MEDS: AmLODIPine BESYLATE 5 MG TABLET PO SCH (08:16)
[2022-01-06] MEDS: DOCUSATE SODIUM 100 MG CAPSULE PO SCH ×2 (08:17→21:00)
[2022-01-06 15:25] VITALS: BP 139/68
[2022-01-06 20:11] VITALS: BP 147/82
[2022-01-07 04:15] VITALS: BP 129/63
[2022-01-07 08:22] VITALS: BP 130/72
[2022-01-07] MEDS: AmLODIPine BESYLATE 5 MG TABLET PO SCH (08:59)
[2022-01-07] MEDS: OxyCODONE HCL/ACETAMINOPHEN 5-325 MG TABLET PO PRN ×2 (08:59→20:19)
[2022-01-07] MEDS: ASPIRIN 81 MG CHEWABLE TABLET PO SCH (08:59)
[2022-01-07] MEDS: FAMOTIDINE 20 MG TABLET PO SCH (08:59)
[2022-01-07] MEDS: HEPARIN SODIUM,PORCINE 5,000 UNITS/ML VIAL SQ SCH ×2 (09:00→15:42)
[2022-01-07] MEDS: MULTIVITAMINS WITH MINERALS, THERAPEUTIC TABLET PO SCH (09:00)
[2022-01-07] MEDS: DOCUSATE SODIUM 100 MG CAPSULE PO SCH ×2 (09:00→21:00)
[2022-01-07 16:12] VITALS: BP 128/73
[2022-01-07 20:10] VITALS: BP 141/75
[2022-01-08] MEDS: HEPARIN SODIUM,PORCINE 5,000 UNITS/ML VIAL SQ SCH ×4 (00:05→23:26)
[2022-01-08] MEDS: OxyCODONE HCL/ACETAMINOPHEN 5-325 MG TABLET PO PRN ×4 (04:38→21:19)
[2022-01-08 04:50] VITALS: BP 145/74
[2022-01-08] MEDS: MULTIVITAMINS WITH MINERALS, THERAPEUTIC TABLET PO SCH (08:12)
[2022-01-08] MEDS: AmLODIPine BESYLATE 5 MG TABLET PO SCH (08:13)
[2022-01-08] MEDS: FAMOTIDINE 20 MG TABLET PO SCH (08:13)
[2022-01-08] MEDS: ASPIRIN 81 MG CHEWABLE TABLET PO SCH (08:13)
[2022-01-08] MEDS: DOCUSATE SODIUM 100 MG CAPSULE PO SCH ×2 (08:14→19:45)
[2022-01-08 15:32] VITALS: BP 133/69
[2022-01-08 20:50] VITALS: BP 129/88
[2022-01-08 21:01] VITALS: BP 145/68
[2022-01-09 04:44] VITALS: BP 134/68
[2022-01-09] MEDS: OxyCODONE HCL/ACETAMINOPHEN 5-325 MG TABLET PO PRN ×3 (06:59→20:18)
[2022-01-09 07:00] VITALS: BP 142/73
[2022-01-09] MEDS: HEPARIN SODIUM,PORCINE 5,000 UNITS/ML VIAL SQ SCH ×2 (08:31→16:46)
[2022-01-09] MEDS: MULTIVITAMINS WITH MINERALS, THERAPEUTIC TABLET PO SCH (08:32)
[2022-01-09] MEDS: FAMOTIDINE 20 MG TABLET PO SCH (08:32)
[2022-01-09] MEDS: ASPIRIN 81 MG CHEWABLE TABLET PO SCH (08:32)
[2022-01-09] MEDS: DOCUSATE SODIUM 100 MG CAPSULE PO SCH ×2 (08:33→20:18)
[2022-01-09] MEDS: AmLODIPine BESYLATE 5 MG TABLET PO SCH (08:35)
[2022-01-09] MEDS ORDERED: AMLO-257 PO (10:48)
[2022-01-09] MEDS ORDERED: ASPI81 PO (10:48)
[2022-01-09 15:33] VITALS: BP 132/69
[2022-01-09 19:20] VITALS: BP 108/44
[2022-01-10] MEDS: HEPARIN SODIUM,PORCINE 5,000 UNITS/ML VIAL SQ SCH ×4 (01:04→23:26)
[2022-01-10] MEDS: OxyCODONE HCL/ACETAMINOPHEN 5-325 MG TABLET PO PRN ×3 (04:48→19:45)
[2022-01-10 05:39] VITALS: BP 124/58
[2022-01-10] MEDS: MULTIVITAMINS WITH MINERALS, THERAPEUTIC TABLET PO SCH (07:58)
[2022-01-10] MEDS: DOCUSATE SODIUM 100 MG CAPSULE PO SCH ×2 (07:59→19:46)
[2022-01-10] MEDS: ASPIRIN 81 MG CHEWABLE TABLET PO SCH (07:59)
[2022-01-10] MEDS: AmLODIPine BESYLATE 5 MG TABLET PO SCH (07:59)
[2022-01-10 08:04] VITALS: BP 121/66
[2022-01-10] MEDS: FAMOTIDINE 20 MG TABLET PO SCH (08:34)
[2022-01-10 16:13] VITALS: BP 122/59
[2022-01-10 19:46] VITALS: BP 134/68
[2022-01-11 03:44] VITALS: BP 142/72
[2022-01-11 07:51] VITALS: BP 143/71
[2022-01-11] MEDS: FAMOTIDINE 20 MG TABLET PO SCH (08:14)
[2022-01-11] MEDS: AmLODIPine BESYLATE 5 MG TABLET PO SCH (08:14)
[2022-01-11] MEDS: MULTIVITAMINS WITH MINERALS, THERAPEUTIC TABLET PO SCH (08:14)
[2022-01-11] MEDS: ASPIRIN 81 MG CHEWABLE TABLET PO SCH (08:15)
[2022-01-11] MEDS: DOCUSATE SODIUM 100 MG CAPSULE PO SCH ×2 (08:15→08:28)
[2022-01-11] MEDS: HEPARIN SODIUM,PORCINE 5,000 UNITS/ML VIAL SQ SCH ×2 (08:19→16:00)
== END 2022-01-11 16:20 | disposition home health service (06) | DRG 563 ==
LOC: EMS 20:25 → 5S 12-31 21:57 → 6S 01-02 11:42
PROVIDERS: ADMIT Internal Medicine; ATTEND Internal Medicine
PROC: 2W38X1Z Immobilization of Right Upper Extremity using Splint (ICD-10-PCS; principal; 2021-12-31)
PROC: 3E0234Z Introduction of Serum, Toxoid and Vaccine into Muscle, Percutaneous Approach (ICD-10-PCS; 2021-12-31)
DX: S52.601A Unspecified fracture of lower end of right ulna, initial encounter for closed fracture (principal); I10 Essential (primary) hypertension; R29.6 Repeated falls; Z20.822 Contact with and (suspected) exposure to COVID-19; R62.7 Adult failure to thrive; M17.0 Bilateral primary osteoarthritis of knee; Z60.2 Problems related to living alone; F11.10 Opioid abuse, uncomplicated; X58.XXXA Exposure to other specified factors, initial encounter; Y93.89 Activity, other specified; Y92.89 Other specified places as the place of occurrence of the external cause; Z91.81 History of falling; Z82.5 Family history of asthma and other chronic lower respiratory diseases; Y99.8 Other external cause status; Z79.899 Other long term (current) drug therapy; Z68.26 Body mass index [BMI] 26.0-26.9, adult
CPT/HCPCS: 70450; 71045; 80053; 80307; 81003; 83605; 83690; 84484; 85025; 90715; 93005; 97116; 97162; 97166; 97530; 97535; 99285; G0480; J1644; J1885; J2405; 36415-L1; 36415-TC

== ENCOUNTER 2022-11-29 10:58 | Inpatient (IN) | payer MEDICARE, OTHER ==
[~2022-11-29] VITALS: Ht 180.3 cm; Wt 93.0 kg
[~2022-11-29 10:58] MED LIST changes: +AMLO-257 PO; +ASPI81 PO; -NAPR-1197 PO
[2022-11-29] MEDS ORDERED: DEXTROSE 50%-WATER 25 GM/50 ML SYRINGE IVP ONE ×2 (11:06→11:15)
[2022-11-29] MEDS ORDERED: SODIUM CHLORIDE 0.9% 1,000 ML IV ONE ×2 (11:30→14:00)
[2022-11-29] MEDS ORDERED: GLUCAGON,HUMAN RECOMBINANT 1 MG VIAL IM ONE (11:30)
[2022-11-29 11:44] LABS: BASOPHILS % (AUTO) 0.7 % (0.0-2.0); EOSINOPHILS % (AUTO) 0.2 % (1.0-6.0); HEMATOCRIT 37.8 % (41-53); HEMOGLOBIN 11.6 g/dL (13.5-17.5); LYMPHOCYTES # (AUTO) 1.9 K/uL (1.0-4.8); LYMPHOCYTES % (AUTO) 14.4 % (22.0-44.0); MEAN CORPUSCULAR HEMOGLOBIN 30.8 pg (26.0-34.0); MEAN CORPUSCULAR HGB CONC 30.7 G/dL (31.0-37.0); MEAN CORPUSCULAR VOLUME 100 fL (80-100); MONOCYTES # (AUTO) 0.8 K/uL (0.1-1.0); MONOCYTES % (AUTO) 6.2 % (2.0-9.0); NEUTROPHILS # (AUTO) 10.2 K/uL (1.8-7.7); NEUTROPHILS % (AUTO) 78.5 % (40.0-70.0); PLATELET COUNT (AUTO) 267 K/uL (150-450); RED BLOOD CELL COUNT(AUTO) 3.76 MIL/uL (4.50-5.90); RED CELL DISTRIBUTION WIDTH 17.6 % (11.5-14.5)
[2022-11-29 12:03] LABS: ALCOHOL, BLOOD (SERUM) < 3 mg/dL (0-10)
[2022-11-29 12:13] LABS: ALANINE AMINOTRANSFERASE 296 U/L (12-78); ALBUMIN 2.5 g/dL (3.4-5.0); ALKALINE PHOSPHATASE 86 U/L (46-116); ANION GAP 30 mmol/L (8-16); BILIRUBIN,TOTAL 2.5 mg/dL (0.1-1.0); CALCIUM, TOTAL 8.1 mg/dL (8.8-10.5); CHLORIDE 101 mmol/L (98-107); CREATININE 4.07 mg/dL (0.60-1.30); GLOMERULAR FILTR. RATE CALC 14 mL/min (>60); POTASSIUM 5.7 mmol/L (3.5-5.1); SODIUM SERUM 138 mmol/L (136-145); UREA NITROGEN, BLOOD 39 mg/dL (7-18)
[2022-11-29 12:19] LABS: ASPARTATE AMINOTRANSFERASE 1547 U/L (15-37); CARBON DIOXIDE 7 mmol/L (22-29)
[2022-11-29 12:20] LABS: GLUCOSE,RANDOM 18 mg/dL (70-110)
[2022-11-29] MEDS ORDERED: DEXTROSE 5%-0.9% SODIUM CHL 1,000 ML IV ONE ×2 (12:30→13:15)
[2022-11-29 12:46] LABS: COVID AG,FIA SOURCE NASAL SWAB
[2022-11-29 12:58] LABS: RBC MORPHOLOGY COMMENT ABNORMAL RBC MORPH
[2022-11-29 13:03] LABS: LACTIC ACID 17.5 mmol/L (0.4-2.0)
[2022-11-29 13:07] LABS: SARS-COV2 (COVID) ANTIGEN,FIA Negative (Negative)
[2022-11-29] MEDS ORDERED: PIPERACILLIN/TAZO 3.375 GM/D5W 50 ML IV ONE (13:15)
[2022-11-29 13:16] LABS: LIPASE 96 U/L (16-77)
[2022-11-29] MEDS ORDERED: ONDANSETRON HCL 4 MG/2 ML VIAL IVP PRN (14:00)
[2022-11-29] MEDS ORDERED: ACETAMINOPHEN 325 MG TABLET PO PRN (14:00)
[2022-11-29] MEDS ORDERED: SODIUM POLYSTYRENE SULFONATE 15 GM/60 ML SUSPENSION BOTTLE PR ONE (14:00)
[2022-11-29 14:21] LABS: INR 1.5 (0.9-1.1); PROTHROMBIN TIME 15.2 SEC (9.4-11.6)
[2022-11-29] MEDS ORDERED: HEPARIN SODIUM,PORCINE 5,000 UNITS/ML VIAL SQ SCH (16:00)
[2022-11-29 17:50] LABS: ABG CARBOXYHEMOGLOBIN 0.3 % (0.0-1.5); ABG HCO3 11.4 mmol/L (22.0-26.0); ABG METHEMOGLOBIN 0.4 % (0.0-1.5); ABG OXYGEN CONTENT 13.5 mL/dL (15.0-23.0); ABG OXYGEN SATURATION 95.9 % (95.0-98.0); ABG OXYHEMOGLOBIN 95.2 % (94.0-100.0); PO2, ARTERIAL BG 90.3 mmHg (75.0-83.0); SOURCE, BLOOD GAS ARTERIAL
[2022-11-29 17:51] LABS: ABG A-A DIFF O2 38.6 mmHg (10-20.0); ABG PCO2 18 mmHg (35-45); ALLEN TEST, BLOOD GAS Positive; O2 DEVICE,BLOOD GAS ROOM AIR (ROOM AIR); SITE, BLOOD GAS LFT RADIAL
[2022-11-29] MEDS ORDERED: SODIUM CHLORIDE 0.9% 250 ML IV ONE (17:52)
[2022-11-29] MEDS: SODIUM BICARBONATE 150 MEQ in DEXTROSE 5%-WATER 1,000 ML IV SCH (18:05)
[2022-11-29] MEDS: CefTRIAXone 1 GM/DEXTROSE 50 ML IV SCH (18:05)
[2022-11-29] MEDS: DOXYCYCLINE HYCLATE 100 MG in DEXTROSE 5%-WATER 100 ML IV SCH (18:35)
[2022-11-29 18:53] LABS: APPEARANCE,URINE HAZY (CLEAR); BILIRUBIN,URINE NEGATIVE (NEGATIVE); COLOR,URINE YELLOW (YELLOW); GLUCOSE, URINE (UA) TRACE mg/dL (NEGATIVE); KETONES,URINE NEGATIVE (NEGATIVE); LEUKOCYTE ESTERASE ,URINE NEGATIVE (NEGATIVE); NITRATE,URINE NEGATIVE (NEGATIVE); OCCULT BLOOD,URINE LARGE (NEGATIVE); PH,URINE 5.5 (5.0-8.0); PH,URINE DRUG SCREEN 5.5 (5.0-8.0); PROTEIN,URINE 100-200,SEE CONFIRM mg/dL (NEGATIVE); SPECIFIC GRAVITIY, URINE 1.012 (1.003-1.030); UROBILINOGEN,URINE <=1.0 mg/dL (<=1.0)
[2022-11-29 18:57] LABS: CREATININE,URINE RANDOM 182.6 mg/dL (30.0-125.0)
[2022-11-29 18:59] LABS: ALCOHOL, URINE DRUG SCREEN NEGATIVE (NEGATIVE); AMPHET/METH SCREEN,URINE POSITIVE (NEGATIVE); BARBITURATE SCREEN, URINE NEGATIVE (NEGATIVE); BENZODIAZEPINES SCREEN,URINE NEGATIVE (NEGATIVE); CANNABINOID SCREEN,URINE NEGATIVE (NEGATIVE); COCAINE SCREEN,URINE NEGATIVE (NEGATIVE); METHADONE SCREEN, URINE NEGATIVE (NEGATIVE); OPIATE SCREEN,URINE POSITIVE (NEGATIVE); PHENCYCLIDINE SCREEN,URINE NEGATIVE (NEGATIVE)
[2022-11-29 19:02] LABS: BASOPHILS % (AUTO) 0.3 % (0.0-2.0); EOSINOPHILS % (AUTO) 0.1 % (1.0-6.0); HEMATOCRIT 28.4 % (41-53); HEMOGLOBIN 9.1 g/dL (13.5-17.5); LYMPHOCYTES # (AUTO) 0.6 K/uL (1.0-4.8); LYMPHOCYTES % (AUTO) 7.6 % (22.0-44.0); MEAN CORPUSCULAR HEMOGLOBIN 30.6 pg (26.0-34.0); MEAN CORPUSCULAR HGB CONC 31.9 G/dL (31.0-37.0); MEAN CORPUSCULAR VOLUME 96 fL (80-100); MONOCYTES # (AUTO) 0.4 K/uL (0.1-1.0); MONOCYTES % (AUTO) 5.6 % (2.0-9.0); NEUTROPHILS # (AUTO) 6.3 K/uL (1.8-7.7); PLATELET COUNT (AUTO) 129 K/uL (150-450); RED BLOOD CELL COUNT(AUTO) 2.96 MIL/uL (4.50-5.90); RED CELL DISTRIBUTION WIDTH 16.8 % (11.5-14.5); WHITE BLOOD COUNT (AUTO) 7.3 K/uL (4.5-11.0)
[2022-11-29 19:08] LABS: SULFOSALICYLIC ACID,URINE 1+ (Negative)
[2022-11-29 19:09] LABS: WBC,URINE 0-2 /HPF (0-5)
[2022-11-29 19:10] LABS: BACTERIA,URINE None Seen /HPF (None Seen); COARSE GRANULAR CASTS,URINE 0-2 /LPF (None Seen); SQUAMOUS EPITHELIAL CELL,UR Few /LPF (None Seen)
[2022-11-29 19:12] LABS: CALCIUM, TOTAL 6.4 mg/dL (8.8-10.5); CREATININE 3.81 mg/dL (0.60-1.30); POTASSIUM 4.9 mmol/L (3.5-5.1)
[2022-11-29 19:16] LABS: NEUTROPHILS % (AUTO) 86.4 % (40.0-70.0)
[2022-11-29 19:25] LABS: ACETAMINOPHEN < 2 mcg/mL (10-30); PHOSPHORUS 9.5 mg/dL (2.5-4.9)
[2022-11-29 19:30] LABS: ACETONE,BLOOD NEGATIVE (NEGATIVE)
[2022-11-29 19:31] LABS: SALICYLATE 1.6 mg/dL (2.8-20.0)
[2022-11-29 20:00] VITALS: BP 111/48; PULSE 60; PULSE 80; RESP 26; TEMP 97.5
[2022-11-29 20:51] LABS: GLUCOMETER DEV NAME(LOC) ERT.5; GLUCOSE,POINT OF CARE 19 MG/DL (70-110)
[2022-11-29] MEDS: DOCUSATE SODIUM 100 MG CAPSULE PO SCH (21:00)
[2022-11-29 22:02] LABS: GLUCOSE,POINT OF CARE 250 MG/DL (70-110)
[2022-11-30] VITALS (11 sets, daily range): BP systolic 86–149; BP diastolic 36–73; PULSE 63–86; RESP 16–25; TEMP 97.4–99.4
[2022-11-30 00:40] LABS: GLUCOSE,POINT OF CARE 118 MG/DL (70-110)
[2022-11-30] MEDS: DOXYCYCLINE HYCLATE 100 MG in DEXTROSE 5%-WATER 100 ML IV SCH ×2 (06:02→18:53)
[2022-11-30 07:10] LABS: GLUCOSE,POINT OF CARE 113 MG/DL (70-110)
[2022-11-30 08:38] LABS: BASOPHILS % (AUTO) 0.8 % (0.0-2.0); EOSINOPHILS % (AUTO) 0.1 % (1.0-6.0); HEMATOCRIT 28.9 % (41-53); HEMOGLOBIN 9.7 g/dL (13.5-17.5); LYMPHOCYTES % (AUTO) 15.2 % (22.0-44.0); MEAN CORPUSCULAR HEMOGLOBIN 31.2 pg (26.0-34.0); MEAN CORPUSCULAR HGB CONC 33.4 G/dL (31.0-37.0); MEAN CORPUSCULAR VOLUME 93 fL (80-100); MONOCYTES # (AUTO) 0.6 K/uL (0.1-1.0); MONOCYTES % (AUTO) 10.3 % (2.0-9.0); NEUTROPHILS # (AUTO) 4.6 K/uL (1.8-7.7); NEUTROPHILS % (AUTO) 73.6 % (40.0-70.0); PLATELET COUNT (AUTO) 111 K/uL (150-450); RED CELL DISTRIBUTION WIDTH 16.5 % (11.5-14.5); WHITE BLOOD COUNT (AUTO) 6.3 K/uL (4.5-11.0)
[2022-11-30 08:50] LABS: CREATININE 4.62 mg/dL (0.60-1.30); MAGNESIUM 2.9 mg/dL (1.80-2.40); PHOSPHORUS 7.8 mg/dL (2.5-4.9)
[2022-11-30 08:55] LABS: POTASSIUM 6.1 mmol/L (3.5-5.1)
[2022-11-30] MEDS ORDERED: FAMOTIDINE 20 MG TABLET PO SCH (09:00)
[2022-11-30] MEDS: PANTOPRAZOLE SODIUM 40 MG/VIAL IVP SCH (09:00)
[2022-11-30] MEDS: DOCUSATE SODIUM 100 MG CAPSULE PO SCH ×2 (09:00→21:00)
[2022-11-30] MEDS ORDERED: INSULIN REGULAR, HUMAN 100 UNITS/ML SQ ONE (10:15)
[2022-11-30] MEDS ORDERED: DEXTROSE 50%-WATER 25 GM/50 ML SYRINGE IVP ONE (10:15)
[2022-11-30] MEDS: SODIUM BICARBONATE 150 MEQ in DEXTROSE 5%-WATER 1,000 ML IV SCH (10:40)
[2022-11-30] MEDS ORDERED: MIDAZOLAM HCL 2 MG/2 ML VIAL ONE (13:41)
[2022-11-30] MEDS ORDERED: FentaNYL CITRATE PF 100 MCG/2 ML VIAL ONE (13:41)
[2022-11-30] MEDS ORDERED: FentaNYL CITRATE PF 100 MCG/2 ML VIAL IVP ONE ×2 (13:45→14:45)
[2022-11-30] MEDS ORDERED: MIDAZOLAM HCL 2 MG/2 ML VIAL IVP ONE ×2 (13:45→14:45)
[2022-11-30] MEDS ORDERED: HEPARIN SODIUM,PORCINE 1,000 UNITS/ML VIAL IVP ONE ×2 (14:15)
[2022-11-30] MEDS: DEXMEDETOMIDINE HCL 400 MCG in SODIUM CHLORIDE 0.9% 96 ML IV PRN ×2 (14:20→22:11)
[2022-11-30] MEDS ORDERED: SODIUM CHLORIDE 0.9% 2,000 ML ONE (15:43)
[2022-11-30] MEDS ORDERED: ALBUMIN HUMAN 25%-12.5GM/50ML 50 ML IV ONE ×3 (16:15→16:30)
[2022-11-30] MEDS ORDERED: ALBUMIN HUMAN 25%-12.5GM/50ML 100 ML ONE (16:17)
[2022-11-30] MEDS ORDERED: NOREPINEPHRINE 8 MG/0.9 % NACL 250 ML IV ONE (17:21)
[2022-11-30] MEDS: NOREPINEPHRINE 8 MG/0.9 % NACL 250 ML IV PRN (17:28)
[2022-11-30] MEDS: CefTRIAXone 1 GM/DEXTROSE 50 ML IV SCH (18:53)
[2022-11-30] MEDS: DEXTROSE 10%-WATER 1,000 ML IV SCH (19:46)
[2022-11-30 20:30] LABS: GLUCOSE,POINT OF CARE 79 MG/DL (70-110)
[2022-12-01] VITALS (16 sets, daily range): BP systolic 85–150; BP diastolic 35–87; PULSE 69–92; RESP 17–24; TEMP 97.5–99
[2022-12-01 01:01] LABS: GLUCOSE,POINT OF CARE 112 MG/DL (70-110)
[2022-12-01 05:51] LABS: BASOPHILS % (AUTO) 0.2 % (0.0-2.0); EOSINOPHILS % (AUTO) 0.4 % (1.0-6.0); HEMATOCRIT 23.3 % (41-53); HEMOGLOBIN 7.9 g/dL (13.5-17.5); LYMPHOCYTES # (AUTO) 1.2 K/uL (1.0-4.8); LYMPHOCYTES % (AUTO) 28.3 % (22.0-44.0); MEAN CORPUSCULAR HEMOGLOBIN 30.9 pg (26.0-34.0); MEAN CORPUSCULAR VOLUME 91 fL (80-100); MONOCYTES # (AUTO) 0.3 K/uL (0.1-1.0); MONOCYTES % (AUTO) 8.2 % (2.0-9.0); NEUTROPHILS # (AUTO) 2.6 K/uL (1.8-7.7); NEUTROPHILS % (AUTO) 62.9 % (40.0-70.0); PLATELET COUNT (AUTO) 102 K/uL (150-450); RED BLOOD CELL COUNT(AUTO) 2.56 MIL/uL (4.50-5.90); RED CELL DISTRIBUTION WIDTH 16.5 % (11.5-14.5); WHITE BLOOD COUNT (AUTO) 4.2 K/uL (4.5-11.0)
[2022-12-01] MEDS: DOXYCYCLINE HYCLATE 100 MG in DEXTROSE 5%-WATER 100 ML IV SCH ×2 (05:53→17:09)
[2022-12-01 06:00] LABS: CALCIUM, TOTAL 6.3 mg/dL (8.8-10.5); CREATININE 4.3 mg/dL (0.60-1.30); POTASSIUM 4.3 mmol/L (3.5-5.1)
[2022-12-01 08:21] LABS: GLUCOSE,POINT OF CARE 133 MG/DL (70-110)
[2022-12-01] MEDS: PANTOPRAZOLE SODIUM 40 MG/VIAL IVP SCH (08:29)
[2022-12-01] MEDS: DOCUSATE SODIUM 100 MG CAPSULE PO SCH ×2 (08:30→21:00)
[2022-12-01 08:35] LABS: CREATININE 4.38 mg/dL (0.60-1.30)
[2022-12-01] MEDS ORDERED: BISACODYL 10 MG RECTAL RECTAL SUPPOSITORY PR PRN (10:00)
[2022-12-01] MEDS ORDERED: SODIUM CHLORIDE 0.9% 2,000 ML ONE (10:37)
[2022-12-01] MEDS ORDERED: HEPARIN SODIUM,PORCINE 1,000 UNITS/ML VIAL IVP ONE (12:00)
[2022-12-01 12:26] LABS: GLUCOSE,POINT OF CARE 110 MG/DL (70-110)
[2022-12-01 14:12] LABS: BASOPHILS % (AUTO) 0.7 % (0.0-2.0); EOSINOPHILS % (AUTO) 1.1 % (1.0-6.0); HEMATOCRIT 27.6 % (41-53); HEMOGLOBIN 9.6 g/dL (13.5-17.5); LYMPHOCYTES # (AUTO) 1.5 K/uL (1.0-4.8); LYMPHOCYTES % (AUTO) 30.7 % (22.0-44.0); MEAN CORPUSCULAR HEMOGLOBIN 31.3 pg (26.0-34.0); MEAN CORPUSCULAR HGB CONC 34.7 G/dL (31.0-37.0); MEAN CORPUSCULAR VOLUME 90 fL (80-100); MONOCYTES # (AUTO) 0.3 K/uL (0.1-1.0); NEUTROPHILS # (AUTO) 2.9 K/uL (1.8-7.7); NEUTROPHILS % (AUTO) 60.5 % (40.0-70.0); PLATELET COUNT (AUTO) 136 K/uL (150-450); RED BLOOD CELL COUNT(AUTO) 3.06 MIL/uL (4.50-5.90); RED CELL DISTRIBUTION WIDTH 16.7 % (11.5-14.5); WHITE BLOOD COUNT (AUTO) 4.8 K/uL (4.5-11.0)
[2022-12-01] MEDS ORDERED: HEPARIN SODIUM,PORCINE 1,000 UNITS/ML VIAL IVCATH ONE ×2 (14:15)
[2022-12-01 14:40] LABS: ALBUMIN 2.3 g/dL (3.4-5.0); BILIRUBIN,TOTAL 3.1 mg/dL (0.1-1.0); CALCIUM, TOTAL 7.2 mg/dL (8.8-10.5); CREATININE 2.11 mg/dL (0.60-1.30); POTASSIUM 3.3 mmol/L (3.5-5.1); TOTAL PROTEIN, SERUM 5.6 g/dL (6.4-8.2)
[2022-12-01] MEDS: DEXTROSE 10%-WATER 1,000 ML IV SCH (14:51)
[2022-12-01] MEDS: CefTRIAXone 1 GM/DEXTROSE 50 ML IV SCH (17:05)
[2022-12-01 17:26] LABS: GLUCOSE,POINT OF CARE 122 MG/DL (70-110)
[2022-12-01] MEDS: NOREPINEPHRINE 8 MG/0.9 % NACL 250 ML IV PRN (22:57)
[2022-12-02] VITALS: BP 110/54; PULSE 76; RESP 21; TEMP 98.8
[2022-12-02] MEDS ORDERED: HALOPERIDOL LACTATE 5 MG/ML VIAL IM ONE
[2022-12-02] MEDS: DEXMEDETOMIDINE HCL 400 MCG in SODIUM CHLORIDE 0.9% 96 ML IV PRN ×3 (00:16→17:08)
[2022-12-02 04:00] VITALS: BP 98/50; PULSE 56; PULSE 59; RESP 20; TEMP 98
[2022-12-02 05:11] LABS: GLUCOSE,POINT OF CARE 116 MG/DL (70-110)
[2022-12-02 05:11] LABS: GLUCOSE,POINT OF CARE 123 MG/DL (70-110)
[2022-12-02 05:13] LABS: EOSINOPHILS % (AUTO) 1.3 % (1.0-6.0); HEMATOCRIT 22.2 % (41-53); HEMOGLOBIN 7.5 g/dL (13.5-17.5); LYMPHOCYTES # (AUTO) 0.9 K/uL (1.0-4.8); LYMPHOCYTES % (AUTO) 48.4 % (22.0-44.0); MEAN CORPUSCULAR HEMOGLOBIN 30.8 pg (26.0-34.0); MEAN CORPUSCULAR HGB CONC 33.8 G/dL (31.0-37.0); MEAN CORPUSCULAR VOLUME 91 fL (80-100); MONOCYTES # (AUTO) 0.2 K/uL (0.1-1.0); MONOCYTES % (AUTO) 12.1 % (2.0-9.0); NEUTROPHILS # (AUTO) 0.7 K/uL (1.8-7.7); NEUTROPHILS % (AUTO) 37.2 % (40.0-70.0); PLATELET COUNT (AUTO) 66 K/uL (150-450); RED BLOOD CELL COUNT(AUTO) 2.44 MIL/uL (4.50-5.90); RED CELL DISTRIBUTION WIDTH 16.4 % (11.5-14.5); WHITE BLOOD COUNT (AUTO) 1.9 K/uL (4.5-11.0)
[2022-12-02 05:34] LABS: ALBUMIN 1.7 g/dL (3.4-5.0); BILIRUBIN,TOTAL 2.9 mg/dL (0.1-1.0); CALCIUM, TOTAL 6.7 mg/dL (8.8-10.5); CREATININE 4.05 mg/dL (0.60-1.30); POTASSIUM 4.2 mmol/L (3.5-5.1); TOTAL PROTEIN, SERUM 4.6 g/dL (6.4-8.2)
[2022-12-02 05:44] LABS: PATHOLOGY REVIEW, DIFF YES
[2022-12-02] MEDS ORDERED: SODIUM CHLORIDE 0.9% 250 ML IV ONE (05:53)
[2022-12-02] MEDS: DOXYCYCLINE HYCLATE 100 MG in DEXTROSE 5%-WATER 100 ML IV SCH (05:55)
[2022-12-02] MEDS: PANTOPRAZOLE SODIUM 40 MG/VIAL IVP SCH (07:28)
[2022-12-02] MEDS: DOCUSATE SODIUM 100 MG CAPSULE PO SCH ×2 (07:28→22:00)
[2022-12-02] MEDS: ETHYL ALCOHOL 62% ANTISEPTIC NASAL SANITIZER 0.6 ML AMPUL NASAL SCH ×2 (07:28→21:57)
[2022-12-02 08:00] VITALS: BP 80/55; PULSE 59; RESP 16; TEMP 98.6
[2022-12-02 09:08] LABS: PROTHROMBIN TIME 20.4 SEC (9.4-11.6)
[2022-12-02] MEDS: DEXTROSE 10%-WATER 1,000 ML IV SCH (10:51)
[2022-12-02 12:00] VITALS: BP 109/58; PULSE 55; RESP 15; TEMP 99.1
[2022-12-02] MEDS ORDERED: HEPARIN SODIUM,PORCINE 1,000 UNITS/ML VIAL ONE (13:10)
[2022-12-02] MEDS ORDERED: HEPARIN SODIUM,PORCINE 1,000 UNITS/ML VIAL IVP PRN ×2 (13:15)
[2022-12-02 16:00] VITALS: BP 124/67; PULSE 59; RESP 21; TEMP 97.6
[2022-12-02] MEDS: CefTRIAXone 1 GM/DEXTROSE 50 ML IV SCH (17:07)
[2022-12-02] MEDS ORDERED: *CLINICAL-LEVOFLOXACIN IVPB DOSING CLINICAL ONE (17:30)
[2022-12-02 17:50] LABS: BASOPHILS % (AUTO) 1.5 % (0.0-2.0); HEMATOCRIT 22.7 % (41-53); HEMOGLOBIN 7.5 g/dL (13.5-17.5); LYMPHOCYTES # (AUTO) 0.7 K/uL (1.0-4.8); LYMPHOCYTES % (AUTO) 34.7 % (22.0-44.0); MEAN CORPUSCULAR HEMOGLOBIN 30.3 pg (26.0-34.0); MEAN CORPUSCULAR VOLUME 92 fL (80-100); MONOCYTES # (AUTO) 0.3 K/uL (0.1-1.0); MONOCYTES % (AUTO) 12.1 % (2.0-9.0); NEUTROPHILS % (AUTO) 49.7 % (40.0-70.0); PLATELET COUNT (AUTO) 70 K/uL (150-450); RED BLOOD CELL COUNT(AUTO) 2.47 MIL/uL (4.50-5.90); RED CELL DISTRIBUTION WIDTH 16.4 % (11.5-14.5); WHITE BLOOD COUNT (AUTO) 2.1 K/uL (4.5-11.0)
[2022-12-02] MEDS: CLINDAMYCIN 900 MG/D5% WATER 50 ML IV SCH (18:21)
[2022-12-02 18:57] LABS: GLUCOSE,POINT OF CARE 132 MG/DL (70-110)
[2022-12-02 18:57] LABS: GLUCOSE,POINT OF CARE 139 MG/DL (70-110)
[2022-12-02] MEDS: DAPTOMYCIN 500 MG in SODIUM CHLORIDE 0.9% 50 ML IV SCH (19:02)
[2022-12-02 20:00] VITALS: BP 140/67; PULSE 62; RESP 16; TEMP 97.6
[2022-12-02] MEDS ORDERED: LEVOFLOXACIN 750 MG/D5% WATER 150 ML IV ONE (20:00)
[2022-12-03] VITALS (14 sets, daily range): BP systolic 88–120; BP diastolic 53–75; PULSE 62–92; RESP 15–24; TEMP 97.3–98.1
[2022-12-03] MEDS: DEXMEDETOMIDINE HCL 400 MCG in SODIUM CHLORIDE 0.9% 96 ML IV PRN ×2 (02:58→13:11)
[2022-12-03] MEDS: CLINDAMYCIN 900 MG/D5% WATER 50 ML IV SCH ×3 (03:01→18:52)
[2022-12-03] MEDS: DEXTROSE 10%-WATER 1,000 ML IV SCH (06:09)
[2022-12-03 06:23] LABS: GLUCOSE,POINT OF CARE 119 MG/DL (70-110)
[2022-12-03 06:42] LABS: GLUCOSE,POINT OF CARE 119 MG/DL (70-110)
[2022-12-03] MEDS: ETHYL ALCOHOL 62% ANTISEPTIC NASAL SANITIZER 0.6 ML AMPUL NASAL SCH ×2 (08:16→20:22)
[2022-12-03] MEDS: PANTOPRAZOLE SODIUM 40 MG/VIAL IVP SCH (08:16)
[2022-12-03] MEDS: DOCUSATE SODIUM 100 MG CAPSULE PO SCH ×2 (08:16→20:22)
[2022-12-03] MEDS: MIDODRINE HCL 5 MG TABLET PO SCH ×2 (09:00→20:22)
[2022-12-03 09:25] LABS: BASOPHILS % (AUTO) 0.5 % (0.0-2.0); HEMATOCRIT 23.7 % (41-53); LYMPHOCYTES # (AUTO) 0.9 K/uL (1.0-4.8); LYMPHOCYTES % (AUTO) 32.1 % (22.0-44.0); MEAN CORPUSCULAR HEMOGLOBIN 30.7 pg (26.0-34.0); MEAN CORPUSCULAR HGB CONC 33.7 G/dL (31.0-37.0); MEAN CORPUSCULAR VOLUME 91 fL (80-100); MONOCYTES # (AUTO) 0.3 K/uL (0.1-1.0); MONOCYTES % (AUTO) 12.8 % (2.0-9.0); NEUTROPHILS # (AUTO) 1.4 K/uL (1.8-7.7); NEUTROPHILS % (AUTO) 52.6 % (40.0-70.0); PLATELET COUNT (AUTO) 72 K/uL (150-450); RED CELL DISTRIBUTION WIDTH 16.1 % (11.5-14.5); WHITE BLOOD COUNT (AUTO) 2.7 K/uL (4.5-11.0)
[2022-12-03 09:44] LABS: ALBUMIN 1.7 g/dL (3.4-5.0); BILIRUBIN,TOTAL 3.5 mg/dL (0.1-1.0); CALCIUM, TOTAL 6.6 mg/dL (8.8-10.5); CREATININE 5.25 mg/dL (0.60-1.30); POTASSIUM 3.5 mmol/L (3.5-5.1); TOTAL PROTEIN, SERUM 4.6 g/dL (6.4-8.2)
[2022-12-03] MEDS: QUEtiapine FUMARATE 25 MG TABLET PO SCH ×2 (10:34→20:23)
[2022-12-03] MEDS: DEXTROSE 5%-0.9% SODIUM CHL 1,000 ML IV SCH ×2 (10:34→18:52)
[2022-12-03] MEDS ORDERED: ALBUMIN HUMAN 5%-12.5GM/250ML 250 ML IV ONE (10:45)
[2022-12-03 11:42] LABS: GLUCOSE,POINT OF CARE 120 MG/DL (70-110)
[2022-12-03] MEDS ORDERED: SODIUM CHLORIDE 0.9% 1,000 ML ONE (12:00)
[2022-12-03] MEDS ORDERED: HEPARIN SODIUM,PORCINE 1,000 UNITS/ML VIAL IVCATH ONE ×2 (13:30)
[2022-12-03] MEDS ORDERED: SODIUM CHLORIDE 0.9% 250 ML IV ONE (17:05)
[2022-12-03] MEDS: NOREPINEPHRINE 8 MG/0.9 % NACL 250 ML IV PRN (17:33)
[2022-12-03] MEDS: LEVOFLOXACIN 500 MG/D5% WATER 100 ML IV SCH (20:22)
[2022-12-04] VITALS (12 sets, daily range): BP systolic 100–146; BP diastolic 50–75; PULSE 62–86; RESP 16–26; TEMP 97.8–98.8
[2022-12-04] MEDS: DEXMEDETOMIDINE HCL 400 MCG in SODIUM CHLORIDE 0.9% 96 ML IV PRN (00:29)
[2022-12-04 01:03] LABS: GLUCOSE,POINT OF CARE 106 MG/DL (70-110)
[2022-12-04 01:03] LABS: GLUCOSE,POINT OF CARE 115 MG/DL (70-110)
[2022-12-04] MEDS: DEXTROSE 5%-0.9% SODIUM CHL 1,000 ML IV SCH ×3 (01:31→20:18)
[2022-12-04] MEDS: DEXTROSE 10%-WATER 1,000 ML IV SCH (03:30)
[2022-12-04] MEDS: CLINDAMYCIN 900 MG/D5% WATER 50 ML IV SCH ×3 (03:33→18:39)
[2022-12-04 05:19] LABS: CALCIUM, TOTAL 6.9 mg/dL (8.8-10.5); CREATININE 3.82 mg/dL (0.60-1.30); MAGNESIUM 1.7 mg/dL (1.80-2.40); PHOSPHORUS 3.6 mg/dL (2.5-4.9); POTASSIUM 3.4 mmol/L (3.5-5.1)
[2022-12-04 07:04] LABS: GLUCOSE,POINT OF CARE 109 MG/DL (70-110)
[2022-12-04] MEDS: PANTOPRAZOLE SODIUM 40 MG/VIAL IVP SCH (08:06)
[2022-12-04] MEDS: QUEtiapine FUMARATE 25 MG TABLET PO SCH ×2 (08:07→22:05)
[2022-12-04] MEDS: DOCUSATE SODIUM 100 MG CAPSULE PO SCH ×2 (08:07→22:06)
[2022-12-04] MEDS: MIDODRINE HCL 5 MG TABLET PO SCH ×2 (08:08→22:06)
[2022-12-04 08:18] LABS: BASOPHILS % (AUTO) 0.8 % (0.0-2.0); LYMPHOCYTES # (AUTO) 0.7 K/uL (1.0-4.8); LYMPHOCYTES % (AUTO) 33.5 % (22.0-44.0); MEAN CORPUSCULAR HEMOGLOBIN 30.9 pg (26.0-34.0); MEAN CORPUSCULAR HGB CONC 33.6 G/dL (31.0-37.0); MEAN CORPUSCULAR VOLUME 92 fL (80-100); MONOCYTES # (AUTO) 0.3 K/uL (0.1-1.0); MONOCYTES % (AUTO) 14.5 % (2.0-9.0); NEUTROPHILS % (AUTO) 49.2 % (40.0-70.0); PLATELET COUNT (AUTO) 72 K/uL (150-450); RED BLOOD CELL COUNT(AUTO) 2.27 MIL/uL (4.50-5.90); RED CELL DISTRIBUTION WIDTH 16.6 % (11.5-14.5); WHITE BLOOD COUNT (AUTO) 2.1 K/uL (4.5-11.0)
[2022-12-04 08:25] LABS: HEMATOCRIT 20.9 % (41-53)
[2022-12-04 09:07] LABS: RBC MORPHOLOGY COMMENT ABNORMAL RBC MORPH
[2022-12-04] MEDS: ETHYL ALCOHOL 62% ANTISEPTIC NASAL SANITIZER 0.6 ML AMPUL NASAL SCH ×2 (09:17→22:05)
[2022-12-04] MEDS: METOCLOPRAMIDE HCL 5 MG/ML 2 ML VIAL IVP SCH ×2 (09:17→22:05)
[2022-12-04] MEDS ORDERED: SODIUM CHLORIDE 0.9% 500 ML IV ONE (10:07)
[2022-12-04 15:21] LABS: GLUCOSE,POINT OF CARE 112 MG/DL (70-110)
[2022-12-04 17:30] LABS: EOSINOPHILS % (AUTO) 1.4 % (1.0-6.0); HEMATOCRIT 26.3 % (41-53); HEMOGLOBIN 8.8 g/dL (13.5-17.5); LYMPHOCYTES # (AUTO) 0.7 K/uL (1.0-4.8); LYMPHOCYTES % (AUTO) 19.1 % (22.0-44.0); MEAN CORPUSCULAR HEMOGLOBIN 30.2 pg (26.0-34.0); MEAN CORPUSCULAR HGB CONC 33.5 G/dL (31.0-37.0); MEAN CORPUSCULAR VOLUME 90 fL (80-100); MONOCYTES # (AUTO) 0.5 K/uL (0.1-1.0); MONOCYTES % (AUTO) 13.8 % (2.0-9.0); NEUTROPHILS # (AUTO) 2.5 K/uL (1.8-7.7); NEUTROPHILS % (AUTO) 64.7 % (40.0-70.0); PLATELET COUNT (AUTO) 86 K/uL (150-450); RED BLOOD CELL COUNT(AUTO) 2.92 MIL/uL (4.50-5.90); RED CELL DISTRIBUTION WIDTH 16.9 % (11.5-14.5); WHITE BLOOD COUNT (AUTO) 3.8 K/uL (4.5-11.0)
[2022-12-04 17:38] LABS: CREATININE 4.48 mg/dL (0.60-1.30)
[2022-12-04] MEDS: DAPTOMYCIN 500 MG in SODIUM CHLORIDE 0.9% 50 ML IV SCH (18:19)
[2022-12-04 20:01] LABS: GLUCOSE,POINT OF CARE 115 MG/DL (70-110)
[2022-12-05] VITALS (18 sets, daily range): BP systolic 111–155; BP diastolic 42–95; PULSE 72–94; RESP 18–26; TEMP 98–99.2
[2022-12-05 01:01] LABS: GLUCOSE,POINT OF CARE 131 MG/DL (70-110)
[2022-12-05] MEDS: DEXTROSE 5%-0.9% SODIUM CHL 1,000 ML IV SCH ×3 (04:05→20:51)
[2022-12-05] MEDS: CLINDAMYCIN 900 MG/D5% WATER 50 ML IV SCH ×2 (04:05→11:00)
[2022-12-05 06:44] LABS: BASOPHILS % (AUTO) 0.8 % (0.0-2.0); EOSINOPHILS % (AUTO) 0.5 % (1.0-6.0); HEMOGLOBIN 9.2 g/dL (13.5-17.5); LYMPHOCYTES # (AUTO) 0.7 K/uL (1.0-4.8); LYMPHOCYTES % (AUTO) 11.5 % (22.0-44.0); MEAN CORPUSCULAR HEMOGLOBIN 30.8 pg (26.0-34.0); MEAN CORPUSCULAR HGB CONC 33.9 G/dL (31.0-37.0); MEAN CORPUSCULAR VOLUME 91 fL (80-100); MONOCYTES # (AUTO) 0.9 K/uL (0.1-1.0); MONOCYTES % (AUTO) 16.3 % (2.0-9.0); NEUTROPHILS # (AUTO) 4.1 K/uL (1.8-7.7); NEUTROPHILS % (AUTO) 70.9 % (40.0-70.0); PLATELET COUNT (AUTO) 101 K/uL (150-450); RED BLOOD CELL COUNT(AUTO) 2.97 MIL/uL (4.50-5.90); RED CELL DISTRIBUTION WIDTH 17.7 % (11.5-14.5); WHITE BLOOD COUNT (AUTO) 5.7 K/uL (4.5-11.0)
[2022-12-05 07:23] LABS: D-DIMER 4.84 mg/L FEU (0.00-0.50); INR 1.7 (0.9-1.1); PROTHROMBIN TIME 17.2 SEC (9.4-11.6)
[2022-12-05 07:40] LABS: ALBUMIN 1.8 g/dL (3.4-5.0); BILIRUBIN,TOTAL 3.5 mg/dL (0.1-1.0); CALCIUM, TOTAL 7.4 mg/dL (8.8-10.5); CREATININE 5.2 mg/dL (0.60-1.30); MAGNESIUM 1.6 mg/dL (1.80-2.40); PHOSPHORUS 4.5 mg/dL (2.5-4.9); POTASSIUM 3.5 mmol/L (3.5-5.1); TOTAL PROTEIN, SERUM 4.8 g/dL (6.4-8.2)
[2022-12-05] MEDS: DOCUSATE SODIUM 100 MG CAPSULE PO SCH ×2 (08:43→20:53)
[2022-12-05] MEDS: MIDODRINE HCL 5 MG TABLET PO SCH ×2 (08:44→20:52)
[2022-12-05] MEDS: QUEtiapine FUMARATE 25 MG TABLET PO SCH ×2 (08:44→20:53)
[2022-12-05] MEDS: ETHYL ALCOHOL 62% ANTISEPTIC NASAL SANITIZER 0.6 ML AMPUL NASAL SCH ×2 (08:45→20:53)
[2022-12-05] MEDS: FUROSEMIDE 40 MG/4 ML VIAL IVP SCH ×2 (09:00→20:51)
[2022-12-05 09:11] LABS: GLUCOMETER DEV NAME(LOC) 5N.2C; GLUCOSE,POINT OF CARE 119 MG/DL (70-110)
[2022-12-05] MEDS ORDERED: SODIUM CHLORIDE 0.9% 2,000 ML ONE (09:44)
[2022-12-05] MEDS: METOCLOPRAMIDE HCL 5 MG/ML 2 ML VIAL IVP SCH ×2 (10:37→20:52)
[2022-12-05] MEDS: PANTOPRAZOLE SODIUM 40 MG/VIAL IVP SCH (10:37)
[2022-12-05] MEDS ORDERED: HEPARIN SODIUM,PORCINE 1,000 UNITS/ML VIAL IVCATH ONE ×2 (12:45)
[2022-12-05 18:22] LABS: GLUCOMETER DEV NAME(LOC) 5N.1C; GLUCOSE,POINT OF CARE 121 MG/DL (70-110)
[2022-12-05 18:26] LABS: GLUCOMETER DEV NAME(LOC) 5N.2C; GLUCOSE,POINT OF CARE 97 MG/DL (70-110)
[2022-12-05] MEDS: LEVOFLOXACIN 500 MG/D5% WATER 100 ML IV SCH (20:50)
[2022-12-06 00:22] VITALS: BP 121/64; PULSE 86; RESP 19; TEMP 99
[2022-12-06] MEDS: DEXTROSE 5%-0.9% SODIUM CHL 1,000 ML IV SCH ×2 (04:34→13:08)
[2022-12-06 04:54] VITALS: BP 116/58; PULSE 93; RESP 20; TEMP 98.9
[2022-12-06 07:29] LABS: CALCIUM, TOTAL 7.5 mg/dL (8.8-10.5); CREATININE 3.91 mg/dL (0.60-1.30); MAGNESIUM 1.7 mg/dL (1.80-2.40); PHOSPHORUS 3.8 mg/dL (2.5-4.9); POTASSIUM 3.9 mmol/L (3.5-5.1)
[2022-12-06 07:41] VITALS: BP 140/100; PULSE 96; RESP 18; TEMP 98.7
[2022-12-06] MEDS: PANTOPRAZOLE SODIUM 40 MG/VIAL IVP SCH (09:00)
[2022-12-06] MEDS: FUROSEMIDE 40 MG/4 ML VIAL IVP SCH (09:00)
[2022-12-06] MEDS: DOCUSATE SODIUM 100 MG CAPSULE PO SCH (09:01)
[2022-12-06] MEDS: METOCLOPRAMIDE HCL 5 MG/ML 2 ML VIAL IVP SCH (09:01)
[2022-12-06] MEDS: QUEtiapine FUMARATE 25 MG TABLET PO SCH (09:02)
[2022-12-06] MEDS: MIDODRINE HCL 5 MG TABLET PO SCH (09:02)
[2022-12-06] MEDS: ETHYL ALCOHOL 62% ANTISEPTIC NASAL SANITIZER 0.6 ML AMPUL NASAL SCH (09:03)
[2022-12-06 11:32] VITALS: BP 126/68; PULSE 95; RESP 18; TEMP 99.5
[2022-12-06 11:57] LABS: GLUCOMETER DEV NAME(LOC) 5N.2C; GLUCOSE,POINT OF CARE 121 MG/DL (70-110)
[2022-12-06 16:46] VITALS: BP 135/73; PULSE 83; RESP 18; TEMP 99.9
[2022-12-06] MEDS: DAPTOMYCIN 500 MG in SODIUM CHLORIDE 0.9% 50 ML IV SCH (17:11)
[2022-12-07 07:03] LABS: GLUCOMETER DEV NAME(LOC) 5N.1C; GLUCOSE,POINT OF CARE 113 MG/DL (70-110)
[2022-12-07 23:01] LABS: GLUCOMETER DEV NAME(LOC) 5S.1B; GLUCOSE,POINT OF CARE 110 MG/DL (70-110)
== END 2022-12-06 19:20 | DRG 871 ==
LOC: EMS 11:01 → ICU 15:40 → 5S 12-05 04:50
PROVIDERS: ADMIT Internal Medicine; ATTEND Internal Medicine
PROC: 06HY33Z Insertion of Infusion Device into Lower Vein, Percutaneous Approach (ICD-10-PCS; principal; 2022-11-30)
PROC: B54BZZA Ultrasonography of Right Lower Extremity Veins, Guidance (ICD-10-PCS; 2022-11-30)
PROC: 5A1D70Z Performance of Urinary Filtration, Intermittent, Less than 6 Hours Per Day (ICD-10-PCS; 2022-11-30)
PROC: 5A1D70Z Performance of Urinary Filtration, Intermittent, Less than 6 Hours Per Day (ICD-10-PCS; 2022-12-01)
PROC: 02HV33Z Insertion of Infusion Device into Superior Vena Cava, Percutaneous Approach (ICD-10-PCS; 2022-12-02)
PROC: B548ZZA Ultrasonography of Superior Vena Cava, Guidance (ICD-10-PCS; 2022-12-02)
PROC: 5A1D70Z Performance of Urinary Filtration, Intermittent, Less than 6 Hours Per Day (ICD-10-PCS; 2022-12-03)
PROC: 30233N1 Transfusion of Nonautologous Red Blood Cells into Peripheral Vein, Percutaneous Approach (ICD-10-PCS; 2022-12-04)
PROC: 05H933Z Insertion of Infusion Device into Right Brachial Vein, Percutaneous Approach (ICD-10-PCS; 2022-12-04)
PROC: B54MZZA Ultrasonography of Right Upper Extremity Veins, Guidance (ICD-10-PCS; 2022-12-04)
PROC: 5A1D70Z Performance of Urinary Filtration, Intermittent, Less than 6 Hours Per Day (ICD-10-PCS; 2022-12-05)
DX: A41.9 Sepsis, unspecified organism (principal); G92.8 Other toxic encephalopathy; K72.00 Acute and subacute hepatic failure without coma; N17.0 Acute kidney failure with tubular necrosis; J69.0 Pneumonitis due to inhalation of food and vomit; E87.20 Acidosis, unspecified; D61.818 Other pancytopenia; D68.9 Coagulation defect, unspecified; M62.82 Rhabdomyolysis; I50.32 Chronic diastolic (congestive) heart failure; R57.9 Shock, unspecified; M60.08 Infective myositis, other site; E16.2 Hypoglycemia, unspecified; T73.0XXA Starvation, initial encounter; K76.0 Fatty (change of) liver, not elsewhere classified; I11.0 Hypertensive heart disease with heart failure; E87.5 Hyperkalemia; F11.10 Opioid abuse, uncomplicated; R58 Hemorrhage, not elsewhere classified; R31.9 Hematuria, unspecified; M19.90 Unspecified osteoarthritis, unspecified site; F15.10 Other stimulant abuse, uncomplicated; S30.1XXA Contusion of abdominal wall, initial encounter; X58.XXXA Exposure to other specified factors, initial encounter; Z20.822 Contact with and (suspected) exposure to COVID-19; D63.8 Anemia in other chronic diseases classified elsewhere; K59.00 Constipation, unspecified; R13.10 Dysphagia, unspecified; Z86.73 Personal history of transient ischemic attack (TIA), and cerebral infarction without residual deficits; Z82.5 Family history of asthma and other chronic lower respiratory diseases; Z82.49 Family history of ischemic heart disease and other diseases of the circulatory system; Z79.899 Other long term (current) drug therapy; Z79.82 Long term (current) use of aspirin; Y93.89 Activity, other specified; Y92.89 Other specified places as the place of occurrence of the external cause; Y99.8 Other external cause status
CPT/HCPCS: 36245; 36569; 36600; 70450; 71045; 74018; 74176; 76705; 76770; 76937; 80048; 80053; 80307; 81001; 81002; 81005; 82009; 82550; 82565; 82570; 82805; 82962; 83605; 83690; 83735; 84100; 84156; 84300; 84520; 84540; 85025; 85379; 85384; 85610; 85730; 86850; 86900; 86901; 86923; 87040; 87081; 87340; 90935; 92523; 92526; 92610; 93005; 93306; 93970; 99291; C9113; G0378; G0480; G0481; J0696; J0878; J1610; J1630; J1644; J1815; J1940; J1956; J2250; J2543; J2765; J3010; J3490; J7030; J7040; J7042; J7050; J7060; P9016; P9041; P9047; Q9967; 36415-L1; 36415-TC